=== PATIENT | male | born 1950 ===

== ENCOUNTER 2024-01-27 23:18 | Inpatient (IN) | payer MEDICARE, OTHER, SELFPAY ==
[2024-01-27] VITALS (14 sets, daily range): BP systolic 125–147; BP diastolic 52–80
--- NOTE | 2024-01-27 22:07 | ED.GENMED ---
History of Present Illness
<Arnav Quinones PA-C - Last Filed: 01/27/24 22:42>
General
Chief Complaint: CODE
Source: ambulance crew
Time Seen by Provider: 01/27/24 22:03
History of Present Illness
History of Present Illness:
74-year-old male with no known past medical history presenting to the emergency department with EMS after he had a witnessed cardiac arrest while at a wedding earlier this evening stating that 2 nieces witnessed him syncopize and came to evaluate
him and noticed patient did not have any pulses, initiated CPR. Facility had an AED which was placed and advised shock x 2, following the set shock patient regained pulses. Upon EMS arrival they noted the patient continued with pulses but seemed a
little bit obtunded so were getting ready to intubate but while getting set up patient started to regain consciousness and breathing on his own. EMS noted patient was little bit confused but was answering questions and knew his name but was unsure
as to what happened. Patient noted to them that he was having some chest pain. EMS also reports that earlier in the day family said the patient did have some mild back discomfort which she thought was more musculoskeletal and had taken some Motrin.
Past History
<Arnav Quinones PA-C - Last Filed: 01/27/24 22:42>
Past History
ED Past Surgical History: None
Social History
Tobacco: Non-smoker
Alcohol: Occasional
Drug: None
Personal:
Living: with family
Review of Systems
<Arnav Quinones PA-C - Last Filed: 01/27/24 22:42>
Review of Systems
All Other Systems: ROS reviewed and negative except as documented in HPI and ROS
Phy Exam
<Arnav Quinones PA-C - Last Filed: 01/27/24 22:42>
Physical Exam
Physical Exam:
GENERAL: Alert , in no apparent distress
HEAD: dried blood right cheek
EYE: pupils equal and reactive, 3mm b/l
NECK: Supple
ENT: o/p clr, mmm.
CARDIAC: Regular rate and rhythm .
LUNGS: Clear breath sounds bilaterally, no acute respiratory distress, no wheezes/rales/rhonchi
CHEST WALL: contusion over distal sternum
ABDOMEN: Soft, without focal tenderness, no r/g, no cvat
NEUROLOGICAL: Alert and oriented
SKIN: Warm and dry, skin intact.
MUSCULOSKELETAL: No edema, well perfused.
PSYCH: Normal and appropriate interaction.
Scores
<Arnav Quinones PA-C - Last Filed: 01/27/24 22:42>
Heart Failure Risk
Heart Failure Risk Score: Not Applicable
Heart Score for Chest Pain Patients
STEMI patient?: Not applicable
Withdrawal Assessment of Alcohol
Withdrawal Assessment Completed?: Not applicable
Course
<Arnav Quinones PA-C - Last Filed: 01/27/24 22:42>
Orders/Labs/Results
Orders:
Orders
01/27/24 21:58
Electrocardiogram (*1) Urgent
Reason for Study: Chest Pain
EKG- Treatment ONCE
01/27/24 22:02
Aspirin Chewable [Low Strength Aspirin] 324 mg .ROUTE .STK-MED ONE
01/27/24 22:06
Aspirin Chewable [Low Strength Aspirin] 324 mg PO NOW STA
01/27/24 22:07
Complete Blood Count/With Diff Urgent
Comprehensive Metabolic Panel Urgent
Troponin I Urgent
01/27/24 22:09
CT Head W/o Iv Contrast Urgent
Comment:
Reason For Exam: syncope, head trauma, v-fib arrest
01/27/24 22:24
Heparin 4,000 units IV NOW STA
Nursing to Place Non Medication Order As Directed
Physician Order: PTT 6 hours after initial start of Heparin infusion
01/27/24 22:30
Heparin 40096 Units/250 ml 25,000 units in 250 ml IV PER PROTOCOL
Weight to be used for heparin protocol in kilograms (kg):: 104.5
Protocol:: Cardiac Tx/Acute Coronary
PTT Goal Range to be used:: PTT 73 to 111 seconds
Order type:: Initial
INITIAL Infusion Dose (UNITS/KG/hr) & then follow protocol:: 12 units/kg/hr
Infusion Dose in UNITS/hr & then follow protocol (UNITS/hr):: 1,000
INFUSION RATE in mL/hr & then follow protocol (mL/hr):: 10
PTT less than or equal to 64 seconds:: Increase rate by 200 units/hr (+ 2 mL/hr)
PTT 64.1 to 72.9 seconds:: Increase rate by 100 units/hr (+ 1 mL/hr)
PTT 73 to 111 seconds:: Target Range. No change in rate.
PTT 111.1 to 130.9 seconds:: Decrease rate by 100 units/hr (- 1 mL/hr)
PTT 131 to 199.9 seconds:: HOLD for 1 hr. Then decrease rate by 200 units/hr (- 2 mL/hr)
PTT greater than or equal to 200 seconds:: HOLD for 2 hrs & Notify Provider. Then decrease by 200 units/hr (-
2 mL/hr)
Lab follow-up:: Each change, PTT q6h until 2 consecutive are therapeutic. Then PTT
daily.
01/27/24 22:31
PTT Urgent
Comment: Obtain baseline before beginning heparin infusion if not already collected
Amiodarone [Cordarone] 150 mg Dextrose 5%/Water 100 ml [D5w] 100 ml IV NOW
01/27/24 22:45
Amiodarone [Cordarone] 900 mg DEXTROSE 5% PVC-free BAG [D5W PVC-free BAG] 500 ml IV PER PROTOCOL
Initial Dose in mg/min:: 1
Duration of initial dose (hours):: 6
Subsequent dose in mg/min:: 0.5
Duration of subsequent dose (hours):: 18
Maximum dose in mg/min:: 1
Hold and notify provider if:: Heart rate < 60 BPM or SBP < 90 mmHg or MAP < 60 mmHg
Abnormal Lab Results
01/27/24
22:07
RBC 3.90 L 10^6/uL
(4.70-6.10)
Hgb 12.7 L g/dL
(13.0-18.0)
Hct 36.9 L %
(39.0-52.0)
MCV 94.6 H fL
(80.0-94.0)
MCH 32.6 H pg
(27.0-31.0)
Plt Count 125 L 10^3/uL
(130-400)
MPV 11.3 H fL
(7.4-10.4)
Abs Immat Gran (auto) 0.1 H 10^3/uL
(0-0.05)
Immature Gran % 1.4 H %
(0-0.5)
Carbon Dioxide 20 L mmol/L
(22-30)
BUN 26 H mg/dl
(9-20)
Glucose 189 H mg/dl
(70-99)
AST 168 H U/L
(17-59)
ALT 179 H U/L
(0-50)
01/27/24 22:07
01/27/24 22:07
Vital Signs
Initial and Last Documented VS:
Initial Vital Signs
Temp Pulse Resp BP Pulse Ox
97.5 F 89 18 136/77 91
01/27/24 22:00 01/27/24 22:00 01/27/24 22:00 01/27/24 22:00 01/27/24 22:00
Last Documented Vital Signs
Temp Pulse Resp BP Pulse Ox
97.5 F 88 14 136/77 93
01/27/24 22:00 01/27/24 22:30 01/27/24 22:30 01/27/24 22:01 01/27/24 22:30
<Chris Alvarado, DO - Last Filed: 01/27/24 22:12>
Orders/Labs/Results
Orders:
Orders
01/27/24 21:58
Electrocardiogram (*1) Urgent
Reason for Study: Chest Pain
EKG- Treatment ONCE
01/27/24 22:02
Aspirin Chewable [Low Strength Aspirin] 324 mg .ROUTE .STK-MED ONE
01/27/24 22:06
Aspirin Chewable [Low Strength Aspirin] 324 mg PO NOW STA
01/27/24 22:07
Complete Blood Count/With Diff Urgent
Comprehensive Metabolic Panel Urgent
Troponin I Urgent
01/27/24 22:09
CT Head W/o Iv Contrast Urgent
Comment:
Reason For Exam: syncope, head trauma, v-fib arrest
01/27/24 22:24
Heparin 4,000 units IV NOW STA
Nursing to Place Non Medication Order As Directed
Physician Order: PTT 6 hours after initial start of Heparin infusion
01/27/24 22:30
Heparin 93320 Units/250 ml 25,000 units in 250 ml IV PER PROTOCOL
Weight to be used for heparin protocol in kilograms (kg):: 104.5
Protocol:: Cardiac Tx/Acute Coronary
PTT Goal Range to be used:: PTT 73 to 111 seconds
Order type:: Initial
INITIAL Infusion Dose (UNITS/KG/hr) & then follow protocol:: 12 units/kg/hr
Infusion Dose in UNITS/hr & then follow protocol (UNITS/hr):: 1,000
INFUSION RATE in mL/hr & then follow protocol (mL/hr):: 10
PTT less than or equal to 64 seconds:: Increase rate by 200 units/hr (+ 2 mL/hr)
PTT 64.1 to 72.9 seconds:: Increase rate by 100 units/hr (+ 1 mL/hr)
PTT 73 to 111 seconds:: Target Range. No change in rate.
PTT 111.1 to 130.9 seconds:: Decrease rate by 100 units/hr (- 1 mL/hr)
PTT 131 to 199.9 seconds:: HOLD for 1 hr. Then decrease rate by 200 units/hr (- 2 mL/hr)
PTT greater than or equal to 200 seconds:: HOLD for 2 hrs & Notify Provider. Then decrease by 200 units/hr (-
2 mL/hr)
Lab follow-up:: Each change, PTT q6h until 2 consecutive are therapeutic. Then PTT
daily.
01/27/24 22:31
PTT Urgent
Comment: Obtain baseline before beginning heparin infusion if not already collected
Amiodarone [Cordarone] 150 mg Dextrose 5%/Water 100 ml [D5w] 100 ml IV NOW
01/27/24 22:45
Amiodarone [Cordarone] 900 mg DEXTROSE 5% PVC-free BAG [D5W PVC-free BAG] 500 ml IV PER PROTOCOL
Initial Dose in mg/min:: 1
Duration of initial dose (hours):: 6
Subsequent dose in mg/min:: 0.5
Duration of subsequent dose (hours):: 18
Maximum dose in mg/min:: 1
Hold and notify provider if:: Heart rate < 60 BPM or SBP < 90 mmHg or MAP < 60 mmHg
Abnormal Lab Results
01/27/24
22:07
RBC 3.90 L 10^6/uL
(4.70-6.10)
Hgb 12.7 L g/dL
(13.0-18.0)
Hct 36.9 L %
(39.0-52.0)
MCV 94.6 H fL
(80.0-94.0)
MCH 32.6 H pg
(27.0-31.0)
Plt Count 125 L 10^3/uL
(130-400)
MPV 11.3 H fL
(7.4-10.4)
Abs Immat Gran (auto) 0.1 H 10^3/uL
(0-0.05)
Immature Gran % 1.4 H %
(0-0.5)
Carbon Dioxide 20 L mmol/L
(22-30)
BUN 26 H mg/dl
(9-20)
Glucose 189 H mg/dl
(70-99)
AST 168 H U/L
(17-59)
ALT 179 H U/L
(0-50)
01/27/24 22:07
01/27/24 22:07
Vital Signs
Initial and Last Documented VS:
Initial Vital Signs
Temp Pulse Resp BP Pulse Ox
97.5 F 89 18 136/77 91
01/27/24 22:00 01/27/24 22:00 01/27/24 22:00 01/27/24 22:00 01/27/24 22:00
Last Documented Vital Signs
Temp Pulse Resp BP Pulse Ox
97.5 F 88 14 136/77 93
01/27/24 22:00 01/27/24 22:30 01/27/24 22:30 01/27/24 22:01 01/27/24 22:30
<Arnav Quinones PA-C - Last Filed: 01/27/24 22:42>
MDM/Problems Addressed
Differential Diagnosis Includes:
V-fib arrest, STEMI, NSTEMI, valvular dysfunction, electrolyte abnormality
MDM/Problems Addressed:
74-year-old male presenting emergency department for evaluation following what appears to be V-fib arrest, patient arrives to the ER awake and alert and breathing on his own, hemodynamically stable. Patient complaining of chest pain which I suspect
is more likely related to the CPR that he received as his EKG here shows no ST segment changes. 324 mg of aspirin ordered. To 150 mg of amiodarone bolus, amiodarone infusion ordered. Will consult with cardiology. Hospitalist team to be notified.
<Arnav Quinones PA-C - Last Filed: 01/27/24 22:42>
*Pulse Oximetry
Patient hypoxic: no
*EKG
Heart Rate: 90
Rate: normal
Rhythm: sinus
[place]: normal axis
Ischemia: no ischemia
*[employer] Program Director Interpretation
Rate: normal
Rhythm: sinus
<Chris Alvarado DO - Last Filed: 01/27/24 22:12>
*Critical Care Note
Total Time (30-74mins, 75-104mins- exclusive of procedures): 35 min
comment:
The high probability of a clinically significant, sudden or life threatening deterioration of the cardiovascular system(s) required my full and direct attention, intervention and personal management. The aggregate critical care time was 35 minutes.
This time is in addition to time spent performing reported procedures but includes the following:
[x] Data Review and interpretation
[x] Patient assessment and monitoring of vital signs
[x] Documentation
[x] Medication orders and management
<Arnav Quinones PA-C - Last Filed: 01/27/24 22:42>
Patient Management
Discussion with other providers: Hospitalist and Digital Art Director
Escalation/DeEscalation of care consider admission/obs:
Hospitalist team accepts for continued evaluation and treatment. Cardiology aware. Requesting that we notify interventional as patient is complaining of chest pain. I spoke with interventional cardiology who states that at this time they do not
feel patient needs to be taken to [facility] this evening unless he develops any ST segment changes. Would recommend treating as NSTEMI. Will order heparin following patient CT scan of the head given his head trauma during the syncope.
ED Attending Note
<Arnav Quinones PA-C - Last Filed: 01/27/24 22:42>
-
Portions of this chart may have been created with voice recognition software.� Occasional wrong word or��sound alike� substitutions may have occurred due to the inherent limitations of voice recognition software.
<Chris Alvarado DO - Last Filed: 01/27/24 22:12>
ED Attending Note
Patient seen and examined by attending physician: Yes
I performed the substantive portion of visit, reviewed & personally made and approve the management plan that is documented in note by myself or LUDY.: Yes
ED Attending Note:
I have seen and evaluated the patient with a [id number] encounter. I have spoken to the advance practicer provider and involved in the medical history, the physical exam, medical decision making.
Evaluation and management service: agree unless noted differently below.
Results interpretation: agree unless noted differently below.
Focused HPI: 74-year-old male presenting with a witnessed arrest. Patient was at a wedding and he was dancing. He was complaining of shortness of breath. He did pass out. There was no pulse. Bystanders started CPR and placed the AED. It was a
shockable rhythm. He was shocked twice. EMS arrived and patient woke up. Patient still seems somewhat confused
Physical exam: Appears somewhat confused. Heart regular rate and rhythm. Skin irritation noted at the AED pad site
Medical Decision Making: Given the concern for V-fib arrest, will give aspirin and amiodarone. Will place on amiodarone drip. Will discuss case with interventional cardiology
Discharge Plan
Departure
Patient Disposition: Admit
Date of Disposition: 01/27/24
Time of Disposition: 22:07
Presentation/result/management discussed w/ accepting MD/DO: Hospitalist
Discharge Problem:
Cardiac arrest
Prescriptions:
No Action
atorvastatin 80 mg Tablet
80 mg PO HS
aspirin 81 mg Tablet,Delayed Release (Dr/Ec)
81 mg PO HS
zolpidem 10 mg Tablet
10 mg PO HS
losartan-hydrochlorothiazide 100-12.5 mg Tablet
1 tab PO HS
dexlansoprazole [Dexilant] 60 mg Capsule,Biphase Delayed Releas
60 mg PO HS
doxazosin
1 tab PO HS
Interventions
Interventions:
*Risk Screen - Suicide Last Done: 01/27/24 22:00
*General Assessment Last Done: 01/27/24 22:00
*Neglect/Abuse Screening Last Done: 01/27/24 22:00
ED- Pulmonary Assessment Last Done: 01/27/24 22:36
ED- Cardiac Assessment Last Done: 01/27/24 22:36
Discharge Date and Time
Print Language: GAMBIAN
--- NOTE | 2024-01-27 22:10 | PHANOTE ---
Med Rec Note:
Pt unable to think of medications. No medications shown in Dr Roche, Pt is not in [facility].
--- NOTE | 2024-01-27 22:10 | HPS.HSE ---
Family Physician
-
Family Physician:
Chief Complaint
-
Witnessed V-fib arrest
History of Present Illness
Patient is a 74-year-old male with unknown past medical history. Patient arrived at [facility] ED following witnessed V-fib arrest during wedding. Bystanders at wedding initiated CPR and place AED which delivered 2 shocks. EMS arrived and ROSC
achieved, patient bit down on tubing when EMS attempted to intubate. Patient currently awake, with some confusion, and requiring O2 support. He denies any symptoms over past few days.
Medical History
Past Medical History
Past Medical History: Reports Other
Additional Past Medical History:
Hypertension
Hyperlipidemia
Sleep Apnea
GERD
Past Surgical History: Reports Other
Additional Past Surgical History:
hernia repair
Social History
Tobacco: Non-smoker
Alcohol: None
Drug: None
Personal:
Employment: Retired
Family History
Family History: Unable to Obtain
Allergies / Home Medications
Allergies reflects when Allergies were last updated in [facility].
Home Medications with original date entered in [facility]
Allergy/Medication List:
Allergies
Allergy/AdvReac Type Severity Reaction Status Date / Time
No Known Allergies Allergy Unverified 01/27/24 21:59
Home Medications
aspirin 81 mg tablet,delayed release 81 mg PO HS 01/27/24
atorvastatin 80 mg tablet 80 mg PO HS 01/27/24
dexlansoprazole 60 mg capsule,biphase delayed release (Dexilant) 60 mg PO HS 01/27/24
doxazosin 1 tab PO HS 01/27/24
losartan 100 mg-hydrochlorothiazide 12.5 mg tablet 1 tab PO HS 01/27/24
zolpidem 10 mg tablet 10 mg PO HS 01/27/24
Review of Systems
-
History Source: Patient
Constitutional: Reports No Symptoms
EENT: Reports No Symptoms
Respiratory: Reports No Symptoms
Cardiac: Reports Chest Pain (likely s/p chest compressions) and Syncope (witnessed v-fib arrest)
Abdomen/GI: Reports No Symptoms
: Reports No Symptoms
Musculoskeletal: Reports No Symptoms
Skin: Reports No Symptoms
Neurological: Reports No Symptoms
Endocrine: Reports No Symptoms
Hematologic/Lymphatic: Reports No Symptoms
Psych: Reports No Symptoms
Physical Exam
Physical Exam
General: Well Developed, Well Nourished, No Apparent Distress and Morbidly Obese
HEENT: NormoCephalic, Moist mucous membranes, Atraumatic, [place] Conjunctivae, Nose Appears Normal and Ears Appear Normal
Respiratory: Clear and Non Labored Respirations; No Wheezes, Rales, Rhonchi or Crackles
Cardiac: S1/S2 and Regular Rhythm; No Murmur, Rub or Gallop
Breast: Deferred by me
GI: Soft, Non Tender, Non Distended and Normal Bowel Sounds; No Organomegaly
Rectal: Deferred by Provider
Genito-urinary: Deferred by me
Musculoskeletal: No Clubbing, No Cyanosis and No Edema
Skin: Warm, Dry, IV/Catheter Site and Other (abrasions noted to forehead and right side of face ); No Rash
Neuro: Awake, Alert and Nonfocal/grossly intact
Psych: Calm and Confused
Laboratory Results
-
01/27/24 22:07
01/27/24 22:07
Laboratory Results
APTT 25.1 Sec (23.4-35.0) 01/27/24 22:31
Total Bilirubin 0.7 mg/dl (0.2-1.3) 01/27/24 22:07
AST 168 U/L (17-59) H 01/27/24 22:07
ALT 179 U/L (0-50) H 01/27/24 22:07
Alkaline Phosphatase 63 U/L (38-126) 01/27/24 22:07
Troponin I 0.028 ng/ml 01/27/24 22:07
Data Reviewed
-
Diagnostic Radiology: Report Reviewed by me (CXR: No focal airspace disease. No pneumothorax.)
CT Scan: Report Reviewed by me (Head: No acute intracranial abnormality noted.)
Lab Data: Labs Reviewed by me
Impression/Plan
-
IMPRESSION/PLAN:
#V-fib arrest, syncope with head trauma
- Witnessed V-fib arrest at wedding, bystanders started CPR, AED at location and placed, 2 shocks given
- EMS arrived and ROSC achieved, attempted to intubate and patient bit down on tube
- Consult cardiology
- CBC w/diff, BMP, Mag, BNP, lipids, PT/INR, trend troponin
- Echocardiogram
- IV Protonix while on heparin
- Heparin gtt
- Amiodarone gtt
- NPO
- Head CT
- Chest X-ray
- Pain control, antiemetics (Tigan if needed r/t long QT) PRN
- IVF bolus
- Levophed to maintain MAP >60 if needed
#Hypertension
- hold losartan-HCTZ
#Hyperlipidemia
- continue atorvastatin
#Sleep Apnea
- utilizes CPap at home
#GERD
- Protonix IV
Full Code
DVT Px: Heparin gtt
Labs
-
Labs:
WBC 6.4 10^3/uL (4.8-10.8) 01/27/24 22:07
RBC 3.90 10^6/uL (4.70-6.10) L 01/27/24 22:07
Hgb 12.7 g/dL (13.0-18.0) L 01/27/24 22:07
Hct 36.9 % (39.0-52.0) L 01/27/24 22:07
Plt Count 125 10^3/uL (130-400) L 01/27/24 22:07
Sodium 142 mmol/L (135-145) 01/27/24 22:07
Potassium 3.7 mmol/L (3.5-5.1) 01/27/24 22:07
Chloride 106 mmol/L (98-107) 01/27/24 22:07
Carbon Dioxide 20 mmol/L (22-30) L 01/27/24 22:07
BUN 26 mg/dl (9-20) H 01/27/24 22:07
Creatinine 1.2 mg/dL (0.7-1.3) 01/27/24 22:07
eGFR > 60.00 01/27/24 22:07
Glucose 189 mg/dl (70-99) H 01/27/24 22:07
Calcium 8.6 mg/dl (8.4-10.2) 01/27/24 22:07
Albumin 4.3 g/dl (3.5-5.0) 01/27/24 22:07
Labs
-
Labs:
WBC 6.4 10^3/uL (4.8-10.8) 01/27/24 22:07
RBC 3.90 10^6/uL (4.70-6.10) L 01/27/24 22:07
Hgb 12.7 g/dL (13.0-18.0) L 01/27/24 22:07
Hct 36.9 % (39.0-52.0) L 01/27/24 22:07
Plt Count 125 10^3/uL (130-400) L 01/27/24 22:07
Sodium 142 mmol/L (135-145) 01/27/24 22:07
Potassium 3.7 mmol/L (3.5-5.1) 01/27/24 22:07
Chloride 106 mmol/L (98-107) 01/27/24 22:07
Carbon Dioxide 20 mmol/L (22-30) L 01/27/24 22:07
BUN 26 mg/dl (9-20) H 11/22/24 22:07
Creatinine 1.2 mg/dL (0.7-1.3) 01/27/24 22:07
eGFR > 60.00 01/27/24 22:07
Glucose 189 mg/dl (70-99) H 01/27/24 22:07
Calcium 8.6 mg/dl (8.4-10.2) 01/27/24 22:07
Albumin 4.3 g/dl (3.5-5.0) 01/27/24 22:07
[2024-01-27 22:17] LABS: % Basophils 0.3 % (0-2); % Eosinophils 1.3 % (0-6); % Immature Granulocytes 1.4 % (0-0.5); % Lymphocytes 24.7 % (20.5-51.1); % Monocytes 7.2 % (1.7-9.3); % Neutrophils 65.1 % (42.2-75.2); Absolute Eosinophils 0.1 10^3/uL (0-0.7); Absolute Immature Granulocytes 0.1 10^3/uL (0-0.05); Absolute Lymphocytes 1.6 10^3/uL (1.2-3.4); Absolute Monocytes 0.5 10^3/uL (0.1-0.6); Absolute Neutrophils 4.2 10^3/uL (1.4-6.5); Hematocrit 36.9 % (39.0-52.0); Hemoglobin 12.7 g/dL (13.0-18.0); Mean Corp Hgb Conc. 34.4 g/dL (33.0-37.0); Mean Corpuscular Hgb 32.6 pg (27.0-31.0); Mean Corpuscular Volume 94.6 fL (80.0-94.0); Mean Platelet Volume 11.3 fL (7.4-10.4); Nucleated Red Blood Cells % 0 % (-); Platelet Count 125 10^3/uL (130-400); Red Cell Dist. Width 12.1 % (11.5-14.5); White Blood Cell Count 6.4 10^3/uL (4.8-10.8)
[2024-01-27 22:28] LABS: ALT (SGPT) 179 U/L (0-50); AST (SGOT) 168 U/L (17-59); Albumin 4.3 g/dl (3.5-5.0); Alkaline Phosphatase 63 U/L (38-126); Blood Urea Nitrogen 26 mg/dl (9-20); Calcium 8.6 mg/dl (8.4-10.2); Carbon Dioxide 20 mmol/L (22-30); Chloride 106 mmol/L (98-107); Glucose 189 mg/dl (70-99); Potassium 3.7 mmol/L (3.5-5.1); Sodium 142 mmol/L (135-145); Total Bilirubin 0.7 mg/dl (0.2-1.3); Total Protein 6.3 g/dl (6.3-8.2); eGFR > 60.00
--- NOTE | 2024-01-27 22:30 | W.PN.UPDATE ---
Update Note
Progress Note Update
Patient seen in conjunction with PAULINA. I agree with findings on history and physical as well as assessment and plan unless stated otherwise.
Patient is status post cardiac arrest during the wedding ceremony. 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
CAD or heart failure who presents to the emergency department following a cardiac arrest as stated above. Patient denies any symptoms prior to the arrest. He was not having any recent episodes of chest pain dyspnea on exertion lower extremity
edema palpitations lightheadedness dizziness nausea vomiting or diaphoresis. He had no recent or infectious symptoms. Weakness is the patient suddenly collapsed and CPR was immediately started. Rhythm was V-fib and patient had to defibrillations.
He had ROSC at that time. There was an attempt to intubate the patient but he was awake enough and alert enough to not require intubation.
When I saw the patient in the ED he was awake alert moving all 4 extremities. He was disoriented and mildly confused. He had no focal deficits. He was able to provide his past medical history to some degree. He apparently was originally from
[place] visiting [facility] for a wedding. There is a reported that he has a executor of his estate/POA who reported that the patient has a history of thrombocytosis. All labs are pending at this time. Cardiology notified. He did complain of
substernal chest pain while in the ED. IR notified as well.
ECG NSR, no acute ischemia. QTc 480.
Plans
VFIB ARREST with ROSC after 2 defibrillation. Alert and oriented immediately afterwards. Not a candidate for cooling. Hemodynamically stable with mild oxygen requirement
- admit to ICU
- CT head, Chest Xray,
- trop, bnp, bmp, cbc, mag, cardiovascular panel, pt/inr
- trend trop
- asa 324 x 1, heparin gtt if head ct negative
- ppi iv while on heparin
- amiodarone gtt for now
- keep K, Mag > 4,2
- continue daily aspirin and statin
- echo
- pain control and antiemetics
- ischemic w/u and EP per cardiology
- npo for now except meds
- cardiology consulted
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
- CT head is negative
- monitoring and consider MRI/neuro consult ini am
Full code
[2024-01-27 22:40] LABS: Troponin I 0.028 ng/ml
[2024-01-27] MEDS: CORDARONE 103 MG IV (22:46)
[2024-01-27] MEDS: LOW STRENGTH ASPIRIN 324 MG PO (22:47)
[2024-01-27 22:48] LABS: APTT 25.1 Sec (23.4-35.0)
[2024-01-27] MEDS: CORDARONE 518 MG IV (23:20)
[2024-01-28] VITALS (73 sets, daily range): BP systolic 93–168; BP diastolic 47–90; BMI 32.3
[2024-01-28] MEDS: HEPARIN 25000 UNITS/250 ML IV ×2 (00:29→20:25)
[2024-01-28] MEDS: HEPARIN 4000 UNITS IV (00:30)
[2024-01-28] MEDS: MORPHINE SULFATE 2 MG IV ×6 (01:37→22:49)
[2024-01-28 01:39] LABS: INR 1.05
[2024-01-28 01:58] LABS: Magnesium 1.8 mg/dl (1.6-2.3)
--- NOTE | 2024-01-28 02:00 | PTCARENOTE ---
Patient arrived via stretcher from ER without difficulty. Patient A+A+Ox3. No neurological deficits noted. Patient able to move all extremities. Morphine 2mg IV given for chest pain - Positive relief provided. New peripheral IV placed by VAT
Team RN - #[id number] Left arm - Basilic. IV Amiodarone infusing at 1 mg/min (33.3 ml/hr). IV Heparin infusing at 1,000 units/hr (10 ml/hr). Patient with no c/o SOB. 2L O2 via NC. SpO2 97%. Sinus Rhythm with rare PVC. Heart rate 60s. Abdomen soft,
round. Normoactive bowel sounds. No c/o nausea. No vomiting. No diaphoresis. No urge to void at this time. Family arrived for brief visit - Back in AM. Patient with no c/o back or flank pain. Assessment as documented.
[2024-01-28 02:07] LABS: NT-proBNP 170 pg/ml
--- NOTE | 2024-01-28 04:15 | PTCARENOTE ---
Patient resting in bed. Patient A+A+Ox3. No neurological deficits noted. New orders obtained for pain management from [facility]. Morphine 2mg IV administered for 10/10 pain - Right and Left Chest region - Moderate relief provided.
Assessment/Interventions as documented.
--- NOTE | 2024-01-28 06:00 | PTCARENOTE ---
Patient A+A+Ox3. No neurological deficits. AM lab work collected and sent. Patient continues on IV Amiodarone gtt and IV Heparin gtt. Patient resting in bed. Assessment/Interventions as documented.
[2024-01-28 06:34] LABS: % Basophils 0.2 % (0-2); % Immature Granulocytes 0.4 % (0-0.5); % Lymphocytes 3.5 % (20.5-51.1); % Monocytes 7.6 % (1.7-9.3); % Neutrophils 88.3 % (42.2-75.2); Absolute Lymphocytes 0.4 10^3/uL (1.2-3.4); Absolute Monocytes 0.9 10^3/uL (0.1-0.6); Absolute Neutrophils 9.9 10^3/uL (1.4-6.5); Hematocrit 37.3 % (39.0-52.0); Hemoglobin 12.9 g/dL (13.0-18.0); Mean Corp Hgb Conc. 34.6 g/dL (33.0-37.0); Mean Corpuscular Hgb 32.4 pg (27.0-31.0); Mean Corpuscular Volume 93.7 fL (80.0-94.0); Mean Platelet Volume 11.1 fL (7.4-10.4); Nucleated Red Blood Cells % 0 % (-); PT 14.5 Sec (11.4-14.6); Platelet Count 130 10^3/uL (130-400); Red Blood Cell Count 3.98 10^6/uL (4.70-6.10); Red Cell Dist. Width 12.2 % (11.5-14.5); White Blood Cell Count 11.2 10^3/uL (4.8-10.8)
[2024-01-28 06:35] LABS: APTT 40.6 Sec (23.4-35.0)
[2024-01-28 06:52] LABS: ALT (SGPT) 161 U/L (0-50); AST (SGOT) 130 U/L (17-59); Albumin 4.3 g/dl (3.5-5.0); Alkaline Phosphatase 58 U/L (38-126); Blood Urea Nitrogen 31 mg/dl (9-20); Calcium 8.7 mg/dl (8.4-10.2); Carbon Dioxide 22 mmol/L (22-30); Chloride 107 mmol/L (98-107); Estimated Creatinine Clearance 73 ml/min; Glucose 196 mg/dl (70-99); HDL Cholesterol 42 mg/dl; LDL Cholesterol, Calculated 53 mg/dl; Magnesium 1.7 mg/dl (1.6-2.3); Phosphorus 3.6 mg/dl (2.5-4.5); Potassium 4.4 mmol/L (3.5-5.1); Sodium 144 mmol/L (135-145); Total Bilirubin 1.2 mg/dl (0.2-1.3); Total Cholesterol 111 mg/dl (50-199); Total Protein 6.4 g/dl (6.3-8.2); Triglyceride 80 mg/dl (10-149); Very Low Density Lipoprotein 16 mg/dl (0-30); eGFR > 60.00
--- NOTE | 2024-01-28 07:09 | CON.INTV ---
Consultation
Consultation Request
Date/Time Consultation Requested: 01/28/2024-7 AM
Date/Time Consultation Performed: 01/28/2024-7:30 AM
Requesting Provider: Hospitalist
Performing Provider: Dr. Dyer
Reason for Consultation: Postcardiac arrest/critical care management
Medical History
-
Chief Complaint: Cardiac arrest
History of Present Illness:
74-year-old male who lives in [place] with a history of hypertension, hyperlipidemia, GERD and obstructive sleep apnea who was at a wedding and and had a witnessed cardiac arrest with almost immediate bystander CPR/AED shock x 2 with subsequent
resumption of spontaneous circulation and regaining mental status-b[employer] supervisor consulted for postcardiac arrest/critical care management 01/28/2024. Patient's major complaint this morning is chest pain especially with deep inspiration related to
probable rib fractures. He denies any shortness of breath at rest. He denies any other chest pain. Did not complain of any abdominal pain, nausea, weakness, or lower extremity swelling.
Past Medical History
Past Medical History: None (Hypertension. Hyperlipidemia. GERD. TERESA on CPAP. Possible CVA in the past. Obesity. Hernia repair.)
Social History
Tobacco: Non-smoker
Alcohol: None
Drug: None
Personal:
Living: With Family (Lives with mother in her 90s and takes care of her)
Employment: Retired
Occupational Exposures: No known asbestos exposure
Environmental Exposures: No known tuberculosis exposure
Allergies / Home Medications
Allergies
Allergy/AdvReac Type Severity Reaction Status Date / Time
No Known Allergies Allergy Unverified 01/27/24 21:59
Home Medications
�Medication �Instructions �Recorded �Confirmed �Last Taken �Type
aspirin 81 mg tablet,delayed 81 mg PO HS 01/27/24 01/28/24 01/26/24 22:00 History
release 81 mg
atorvastatin 80 mg tablet 80 mg PO HS 01/27/24 01/28/24 01/26/24 22:00 History
80 mg
dexlansoprazole 60 mg 60 mg PO HS 01/27/24 01/28/24 01/26/24 22:00 History
capsule,biphase delayed release 60 mg
(Dexilant)
doxazosin 1 tab PO HS 01/27/24 01/28/24 01/26/24 22:00 History
5 mg
losartan 100 1 tab PO HS 01/27/24 01/28/24 01/26/24 22:00 History
mg-hydrochlorothiazide 12.5 mg 100-12.5mg
tablet
zolpidem 10 mg tablet 10 mg PO HS 01/27/24 01/28/24 01/26/24 22:00 History
10 mg
Review of Systems
-
Unable to Obtain full review of systems at this time due to: Other (Per HPI)
Vitals / Labs / Diagnostic Testing
Vital Signs
Temp Pulse Resp BP Pulse Ox
98.0 F 65 18 136/72 97
01/28/24 04:00 01/28/24 06:21 01/28/24 06:21 01/28/24 06:21 01/28/24 06:21
Lab Data
01/28/24 06:10
01/28/24 06:10
Laboratory Results
01/27/24 01/27/24 01/28/24
22:31 22:43 06:10
PT 14.0 Cancelled 14.5
INR 1.05 Cancelled 1.10
APTT 25.1 40.6 H
Diagnostic Testing:
Physical Exam
-
Exam:
Well-nourished and well-developed in no apparent distress
HEENT-atraumatic, normocephalic
Neck-supple, no JVD, no bruit
Heart-regular rate and rhythm-no murmurs, rubs or gallops
Chest-clear to auscultation, no wheezes, crackles
Back-no tenderness
Abdomen-soft, nontender, nondistended, no hepatosplenomegaly
Extremities-no cyanosis, clubbing, edema and good peripheral pulses
Integument-intact, no rashes, lesions or ecchymosis
Neurology-alert and oriented, nonfocal motor and sensory exam
Assessment
-
74-year-old male who lives in [place] with a history of hypertension, hyperlipidemia, GERD and obstructive sleep apnea who was at a wedding and and had a witnessed cardiac arrest with almost immediate bystander CPR/AED shock x 2 with subsequent
resumption of spontaneous circulation and regaining mental status-[employer] supervisor consulted for postcardiac arrest/critical care management 01/28/2024.
Out of hospital witnessed cardiac arrest-suspect VT/V-fib arrest with shockable rhythm
Chest pain
Elevated troponin
Hypertension
Hyperlipidemia
Right carotid atherosclerosis noted on chest x-ray
Leukocytosis-WBC 11.2
Mild coojba-gibjbtodad-vfotsbyyvr 12.9
Hyperglycemia-blood sugar [id number]
Conditions present prior to admission:
Hypertension.
Hyperlipidemia.
GERD.
TERESA on CPAP.
Possible CVA in the past.
Obesity.
Hernia repair.
Plan
Critically ill postarrest-did not require intubation
Supplemental oxygen as needed
Incentive spirometry
Follow radiographically
CPAP at night as needed-has home CPAP
Trend troponin
Cardiology evaluation ongoing
Check echocardiogram
Coronary ischemia workup
Amiodarone drip continues
Heparin drip continues
Nitroglycerin drip continues
Evaluated for targeted temperature management-not a candidate-mental status normal after resumption of spontaneous circulation
Analgesia per primary service
DVT prophylaxis
Nutrition
Early mobilization
Outpatient follow-up with sleep specialist as well as cardiology
Critical care statement: A total of 55 minutes of critical care time was provided for this patient today. This includes management of unstable vital signs, evaluation of the patient at bedside, reviewing the patient's pertinent medical records
including radiographs, postcardiac arrest management, microbiology, laboratory evaluations, and discussion with primary team, consultants, pharmacy, nutrition, physical therapy, case management, charge nurse, critical care nursing, and respiratory
therapy.
Diagnostic data:
Chest x-ray 01/27/2024-no focal airspace disease, no pneumothorax
CT head 01/27/2024-no acute intracranial abnormalities
Data Reviewed
-
EKG: Report reviewed by me
Radiology: Image personally visualized and interpreted and Report reviewed by me
CT Scan: Report reviewed by me
Medical Tests (Nuc Med, Echo etc): Report reviewed by me
Labs: Labs reviewed by me
Old Records: Reviewed
Critical Care Time (in minutes): 55
[2024-01-28 07:26] LABS: Hepatitis C Antibody Negative (Negative)
--- NOTE | 2024-01-28 07:45 | W.PN.HOSP.TC ---
Today's Communication/Plan
-
Continue Aspirin, heparin drip, nitro drip, amiodarone drip and Toprol XL
Assessment / Plan
Assessment / Plan
Physical Exam
General: Not in acute distress
HEENT: Normocephalic
Respiratory: Clear to Auscultation Bilaterally
Cardiac: S1/S2 and Regular Rhythm
GI: Soft, Non Tender, Non Distended and Normal Bowel Sounds
Musculoskeletal: No Cyanosis and No Edema
Skin: Warm. Dry.
Neuro: Awake, Alert, Oriented x3
Psych: Calm
Assessment/Plan
74 y/o male status post cardiac arrest during the wedding ceremony. 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
presented to the emergency department following a cardiac arrest at a wedding during which AED which was applied and advised shock x 2 for V-Fib arrest. Patient denies any symptoms prior to the arrest. He was not having any recent episodes of
chest pain dyspnea on exertion lower extremity edema palpitations lightheadedness dizziness nausea vomiting or diaphoresis. He had no recent or infectious symptoms. Weakness is the patient suddenly collapsed and CPR was immediately started.
Rhythm was V-fib and patient had two defibrillations. He had ROSC at that time. There was an attempt to intubate the patient but he was awake enough and alert enough to not require intubation.
At the time of admission in the emergency department, patient was awake and alert moving all 4 extremities. He was disoriented and mildly confused. He had no focal deficits. He was able to provide his past medical history to some degree. He
apparently was originally from [place] [facility] a [facility]. There is a reported that he has a executor of his estate/POA who reported that the patient has a history of thrombocytosis. All labs are pending at this time. Cardiology
notified. He did complain of substernal chest pain while in the ED. IR notified as well.
ECG NSR, no acute ischemia. QTc 480.
Suspected VT/VF based on advised AED shock
- Continue to monitor in CVICU
- CT head with no acute abnormality
- CXR with with 'Mild atherosclerotic calcifications of the right carotid bifurcation,' as per radiologist's report, otherwise no pneumothorax or focal airspace disease
- bmp, mag are okay
- LDL 53
- INR okay
- Troponins so far peaked at 3.030
- ProBNP was 170
- asa 324 x 1, heparin gtt if head ct negative
- ppi iv while on heparin
- Continue ASA, heparin drip, nitro drip, amiodarone drip, Toprol XL
- keep K, Mag > 4,2
- Echo results noted -- LVEF is 50%, mildly enlarged right ventricular size, but normal right ventricular systolic function
- Discussed with combatant diver qualified and vocational education teacher today -- hold off on PE evaluation for now. Since it was a shockable rhythm, suspect ischemia. Other possible would be primary rhythm issue if cath is unremarkable.
- ischemic w/u and EP per cardiology -- eventual left heart cath
- Cardiology consulted, appreciate their evaluation and recommendations
Leukocytosis
Normocytic Anemia
Thrombocytopenia - RESOLVED
- Monitor CBC
Confusion - IMPROVING
- CT head is negative
- If mental status worsens or does not continue to improve, then will consult neurology
History of Thrombocytosis?
Right carotid atherosclerosis noted on chest x-ray
Hypertension - hold Losartan-HCTZ
Hyperlipidemia - continue Atorvastatin
GERD - Protonix IV
TERESA on CPAP - patient uses CPAP at home
Possible CVA in the past.
Obesity.
Hernia repair.
Full Code
DVT Prophylaxis: Heparin gtt
Patient with Vtach/Vfib arrest needing monitoring in the CVICU with Heparin Drip, Nitro Drip and Amiodarone Drip, is a high-risk encounter.
Anticipated Discharge: > 48 hours
Subjective/Interval History
-
Date of Service: January 28, 2024
Patient was seen and examined. He was having intermittent chest wall pain, but otherwise denied any other significant symptoms or complaints.
Objective Data
-
Labs:
Laboratory Results
01/27/24 01/27/24 01/27/24
22:07 22:31 22:43
WBC 6.4
Hgb 12.7 L
Hct 36.9 L
Plt Count 125 L
PT 14.0 Cancelled
INR 1.05 Cancelled
APTT 25.1
Sodium 142
Potassium 3.7
Chloride 106
Carbon Dioxide 20 L
BUN 26 H
Creatinine 1.2
Glucose 189 H
Calcium 8.6
Total Bilirubin 0.7
AST 168 H
ALT 179 H
Alkaline Phosphatase 63
01/28/24 01/28/24 01/28/24
06:00 06:10 13:30
WBC 11.2 H
Hgb 12.9 L
Hct 37.3 L
Plt Count 130
PT 14.5
INR 1.10
APTT Pending 40.6 H Pending
Sodium 144
Potassium 4.4
Chloride 107
Carbon Dioxide 22
BUN 31 H
Creatinine 1.0
Glucose 196 H
Calcium 8.7
Total Bilirubin 1.2
AST 130 H
ALT 161 H
Alkaline Phosphatase 58
Vital Signs:
Vital Signs
Temp Pulse Resp BP Pulse Ox
98.0 F 68 20 140/67 95
01/28/24 04:00 01/28/24 07:30 01/28/24 06:30 01/28/24 07:00 01/28/24 07:30
I&O
01/27/24 01/28/24 01/29/24
06:59 06:59 06:59
Intake Total 199.9 / 199.9
Output Total 200 / 200
Balance 199.9 / -0.1 -200 / -200
--- NOTE | 2024-01-28 08:53 | CON.CAR ---
Addendum entered and electronically signed by José Luis Humphreys MD 01/28/24 10:17:
74 yo male with PMH of elevated coronary calcium score, HTN, hyperlipidemia is admitted following out of hospital cardiac arrest. He was dancing at a wedding. Then sat down and passed out. Family members could not find pulse, started CPR, and
then applied AED which advised shock. EMS arrived, and he woke up as intubation was attempted. Currently his chest wall is painful to palpation. He does not recall any symptoms prior to the event. Exam with RRR, no murmurs, no edema. EKG: NSR,
mildly elevated QTc. TnI 0.028-->3.0.
Out of hospital cardiac arrest. Suspected VT/VF based on advised AED shock. Check echo today. Cath likely Tuesday. Based on cath findings, to decide on ICD evaluation.
Continue current regimen. ASA, heparin gtt, nitro gtt, amio gtt, Toprol XL.
Original Note:
Consultation
Consultation Request
Date/Time Consultation Requested: 01/28/2024 0700
Date/Time Consultation Performed: 01/28/24 0730
Requesting Provider: Dr. Miranda
Performing Provider: Dr. Humphreys
Reason for Consultation: out of hospital arrest
Medical History
-
Chief Complaint: syncope, out of hospital arrest
History of Present Illness:
74 y/o pt with history of HTN,hyperlipidemia, TERESA on CPAP, possible CVA who lives in [place] who was in the area for a wedding. He was dancing and then sat at a table and had syncope and fell out of his chair. He was noted to not have a pulse
and CPR was started by witnesses. The facility had an AED which was applied and advised shock x 2 . He regained consciousness when EMS arrived. Did not required intubation. Initial EKG's without acute ST changes. He was started on IV amiodarone and
IV heparin. This am he notes pain in his chest and ribs. He can feel this with pushing and a deep breath. He has a second discomfort during which he feels a tight fist in the center of his chest which causes him to hold his breath, he becomes red in
the face and mildly diaphoretic with it. This can last 1-2 min then improves.
-
He denies prior CAD, NV. He states he had a calcium score of 14 in the past.
Past Medical History
Past Medical History: HTN, Hypercholesterolemia and Other (TERESA/CPAP, ? low platelets)
Past Surgical History: None
Social History
Tobacco: Non-Smoker
Alcohol: Occasional
Drug: None
Living: Other (Takes care of his mother who is in her 90's)
Employment: Retired
Family History
Family History: Reviewed & Not Pertinent
Allergies / Home Medications
Allergy/AdvReac Type Severity Reaction Status Date / Time
No Known Allergies Allergy Unverified 01/27/24 21:59
�Medication �Instructions �Recorded �Confirmed �Type
aspirin 81 mg tablet,delayed 81 mg PO HS 01/27/24 01/28/24 History
release
atorvastatin 80 mg tablet 80 mg PO HS 01/27/24 01/28/24 History
dexlansoprazole 60 mg 60 mg PO HS 01/27/24 01/28/24 History
capsule,biphase delayed release
(Dexilant)
doxazosin 1 tab PO HS 01/27/24 01/28/24 History
losartan 100 1 tab PO HS 01/27/24 01/28/24 History
mg-hydrochlorothiazide 12.5 mg
tablet
zolpidem 10 mg tablet 10 mg PO HS 01/27/24 01/28/24 History
Review of Systems
-
History Source: Patient
Constitutional: No Symptoms
EENT: No Symptoms
Respiratory: No Symptoms
Cardiac: Chest Pain (fist in center of chest) and Diaphoresis
Abdomen/GI: No Symptoms
: No Symptoms
Musculoskeletal: Other (chets pain, rib pain)
Skin: No Symptoms
Physical Exam
Vital Signs
Temp Pulse Resp BP Pulse Ox
98.0 F 68 20 140/67 95
01/28/24 04:00 01/28/24 07:30 01/28/24 06:30 01/28/24 07:00 01/28/24 07:30
Lab Results
01/28/24 06:10
01/28/24 06:10
Troponin I 3.030 ng/ml H* 01/28/24 06:10
Cft-K-Grenlgiauoo Pept Cancelled 01/27/24 22:43
Physical Exam
General: Well Developed, Well Nourished and No Apparent Distress
HEENT: Normocephalic
Respiratory: Clear
Cardiac: S1/S2 and Regular Rhythm
Breast: N/A
GI: Soft, Non Tender and Non Distended
Musculoskeletal: No Edema
Skin: Warm and Dry
Neuro: AO x 3
Psych: Calm
Impression / Plan
-
Suspected VT/VF arrest with shockable rhythm on AED:
-witnessed at a wedding, CPR, AED with 2 shocks given. We dont not have strips at this time.
-did not require intubation when EMS arrive and was awake but slightly confused.
-troponin 3 and con't to trend
-IV amiodarone. Tele stable
-EKG's without acute changes.
-echo planned today
-pt requires intense monitoring with IV heparin, IV nitro and IV amiodarone
-when BP stable will add bblocker
CP:
- pt with episodes of CP this am
-EKG's have remained stable
-IV nitro initiated
-trend troponin
-check echo this am
-Eventual LHC
HTN:
-prior OP meds, on hold given IV nitro
hyperlipidemia:
-chronic statin
R carotid atherosclerosis:
-noted on CXR this admit , described as mild
-con't statin, asa
Data Reviewed
-
EKG: Tracing Personally Visualized and interpreted (NSR 68 bpm)
Radiology: Report Reviewed by me (01/27/24 no acute findings)
Labs: Labs Reviewed by me, Discussed with Physician and Discussed with Patient
[2024-01-28] MEDS: PROTONIX IV 40 MG IV ×2 (09:18→20:24)
[2024-01-28] MEDS: NSS (PRESERVATIVE FREE) 10 ML IV ×2 (09:19→20:24)
[2024-01-28 11:07] LABS: Glycohemoglobin (HgbA1c) 5.9 % (4.0-5.6)
[2024-01-28] MEDS: TOPROL XL 25 MG PO (11:17)
--- NOTE | 2024-01-28 12:00 | SUR.OPER ---
Some relief of CP with nitro titrated up to 30mcg: still requiring morphine intermittently for rib pain. Hospitalist and cardiology aware of same: new orders. Amio gtt will be renewed for another 24hrs. Troponin trending daown.
[2024-01-28] MEDS: MORPHINE SULFATE 4 MG IV ×2 (13:56→20:24)
[2024-01-28 15:32] LABS: APTT 78.7 Sec (23.4-35.0)
--- NOTE | 2024-01-28 17:00 | PTCARENOTE ---
[id number] 12 lead shows no acute changes and troponins trending down.
--- NOTE | 2024-01-28 19:27 | PTCARENOTE ---
Bedside walking rounds rounds report received: patient is having chest pain with minimal exertion: cardiology aware: will do serial EKG for evolution and troponins and add IV nitro. Heparin gtt verified at 1200 units /hr. NSR with pvc/pac's. Very
talkative and anxious. See flowrecord for remaining assessments.
--- NOTE | 2024-01-28 21:00 | PTCARENOTE ---
Patient received resting in bed. Pain management with Morphine sulfate 2-4 mg IV. Patient with increasing c/o left sided rib pain. Patient states, 'I think my ribs are broken.' No c/o sternal pain, pressure or discomfort. No c/o radiating pain.
Patient continues on IV Amiodarone gtt, IV Heparin gtt and IV Nitro gtt. 2L O2. SpO2 96%. Sinus Rhythm with occasional PAC and PVC. Heart rate 60's. Blood pressure 117/77 (90). Voiding without difficulty. No c/o back or flank pain.
Abrasions to right side of forehead/cheek/face - Open to air. Assessment as documented.
[2024-01-28] MEDS: ASPIR LOW (ENTERIC COATED) 81 MG PO (22:49)
[2024-01-28] MEDS: MAGNESIUM OXIDE 500 MG PO (22:49)
[2024-01-28] MEDS: LIPITOR 80 MG PO (22:49)
[2024-01-28] MEDS: CORDARONE 518 MG IV (23:20)
[2024-01-29] VITALS (58 sets, daily range): BP systolic 116–198; BP diastolic 62–101; BMI 32.0
--- NOTE | 2024-01-29 | PTCARENOTE ---
VAT Team RN placed new #22P left forearm for renewal of IV Amiodarone gtt. New Amiodarone gtt with new tubing/filter started at 0.5 mg/min (16.7 ml/hr) due to heart rate 60's per PA. Old peripheral IV site #22P used for IV Amiodarone gtt removed
without difficulty per protocol. Most recent PTT result 53.0 - In accordance with IV Heparin protocol for Cardiac Tx/Acute Coronary, rate increased by 200 units/hr. IV Heparin now infusing at 1,400 units/hr (14 ml/hr). PTT 6hrs after rate change.
Assessment/Interventions as documented.
[2024-01-29] MEDS: MORPHINE SULFATE 4 MG IV ×2 (00:45→20:08)
[2024-01-29] MEDS: MORPHINE SULFATE 2 MG IV ×4 (03:00→16:42)
[2024-01-29] MEDS: DILAUDID 0.25 MG IV (05:10)
[2024-01-29 05:53] LABS: % Basophils 0.2 % (0-2); % Eosinophils 0.1 % (0-6); % Immature Granulocytes 0.5 % (0-0.5); % Lymphocytes 14.3 % (20.5-51.1); % Monocytes 10.7 % (1.7-9.3); % Neutrophils 74.2 % (42.2-75.2); Absolute Lymphocytes 1.2 10^3/uL (1.2-3.4); Absolute Monocytes 0.9 10^3/uL (0.1-0.6); Absolute Neutrophils 6.4 10^3/uL (1.4-6.5); Hematocrit 33.6 % (39.0-52.0); Hemoglobin 11.5 g/dL (13.0-18.0); Mean Corp Hgb Conc. 34.2 g/dL (33.0-37.0); Mean Corpuscular Hgb 32.9 pg (27.0-31.0); Mean Platelet Volume 11.4 fL (7.4-10.4); Nucleated Red Blood Cells % 0 % (-); Platelet Count 121 10^3/uL (130-400); Red Cell Dist. Width 12.5 % (11.5-14.5); White Blood Cell Count 8.6 10^3/uL (4.8-10.8)
--- NOTE | 2024-01-29 06:15 | PTCARENOTE ---
Patient administered IV Dilaudid 0.25mg x1 - 12/14 left lateral chest - Moderate relief provided. Patient with coughing episode. Small amount of brown, dark red secretions expelled. Patient given CHG bath and linens changed. PTT result 55.0 - IV
Heparin rate increased by 200 units - Now infusing at 1,600 units/hr (16 ml/hr). PTT at 12pm. Assessment/Interventions as documented.
[2024-01-29 06:27] LABS: ALT (SGPT) 109 U/L (0-50); AST (SGOT) 59 U/L (17-59); Albumin 3.6 g/dl (3.5-5.0); Alkaline Phosphatase 50 U/L (38-126); Blood Urea Nitrogen 39 mg/dl (9-20); Calcium 8.1 mg/dl (8.4-10.2); Carbon Dioxide 26 mmol/L (22-30); Chloride 106 mmol/L (98-107); Estimated Creatinine Clearance 73 ml/min; Glucose 143 mg/dl (70-99); Magnesium 2.1 mg/dl (1.6-2.3); Sodium 141 mmol/L (135-145); Total Bilirubin 0.9 mg/dl (0.2-1.3); Total Protein 5.6 g/dl (6.3-8.2); eGFR > 60.00
--- NOTE | 2024-01-29 07:00 | PTCARENOTE ---
Bedside walking rounds report. Patient is refusing to get oob to chair due to intense pain ribs. NSR. Oxygen increased to 3L to maintain pulse ox sats greater than 90%: explained importance of oob for lung perfusion and pulmonary toileting.
Continues to refuse. See flowrecord for remaining assessments.
[2024-01-29] MEDS: PROTONIX IV 40 MG IV ×2 (07:41→20:09)
[2024-01-29] MEDS: MAGNESIUM OXIDE 500 MG PO ×2 (07:41→20:09)
[2024-01-29] MEDS: TOPROL XL 25 MG PO (07:41)
[2024-01-29] MEDS: NSS (PRESERVATIVE FREE) 10 ML IV ×2 (07:42→20:09)
--- NOTE | 2024-01-29 07:44 | W.PN.INTV ---
Today's Communication / Plan
Recommendations
Analgesia
Nitro and heparin drip continue
Monitor for arrhythmias
Cardiac catheterization tomorrow
Assessment
-
74-year-old male who lives in [place] with a history of hypertension, hyperlipidemia, GERD and obstructive sleep apnea who was at a wedding and and had a witnessed cardiac arrest with almost immediate bystander CPR/AED shock x 2 with subsequent
resumption of spontaneous circulation and regaining mental status-instructional specialist consulted for postcardiac arrest/critical care management 01/28/2024.
Out of hospital witnessed cardiac arrest-suspect VT/V-fib arrest with shockable rhythm
Chest pain
Suspected rib fractures from CPR
Elevated troponin
Hypertension
Hyperlipidemia
Right carotid atherosclerosis noted on chest x-ray
Leukocytosis-WBC 11.2
Mild olmmvy-rqnighdtjd-pahyawqipv 12.9
Hyperglycemia-blood sugar [id number]
Conditions present prior to admission:
Hypertension.
Hyperlipidemia.
GERD.
TERESA on CPAP.
Possible CVA in the past.
Obesity.
Hernia repair.
Plan
Continues to be critically ill on a heparin and nitroglycerin drip
Supplemental oxygen as needed
Incentive spirometry
Follow radiographically
CPAP at night as needed-has home CPAP
Trend troponin
Cardiology evaluation ongoing-reviewed with Dr. Humphreys
Echocardiogram 01/28/2024-EF 50%, mildly enlarged right ventricle, normal right ventricular systolic function, no significant valvular disease
Coronary ischemia workup-tentative cardiac catheterization 01/30/2024
Amiodarone drip continues
Heparin drip continues
Nitroglycerin drip continues
Evaluated for targeted temperature management-not a candidate-mental status normal after resumption of spontaneous circulation
Venous thromboembolic disease as cause for cardiopulmonary arrest-very low suspicion-suspect arrhythmia
Would not pursue CT chest with PE protocol at this time-he will be receiving dye at cardiac catheterization
If cardiac catheterization is unrevealing for ischemia induced arrhythmia he will likely need ICD and at that point prior to heparin drip discontinuation would rule out PE to be complete
Analgesia per primary service-significant rib and sternal pain
Consider eventual rib films or CT chest with ongoing severe anterior chest pain related to suspected rib/sternal fractures
DVT prophylaxis-on heparin drip
Nutrition
Early mobilization when allowed by cardiology
Outpatient follow-up with sleep specialist as well as cardiology
Critical care statement: A total of 55 minutes of critical care time was provided for this patient today. This includes management of unstable vital signs, evaluation of the patient at bedside, reviewing the patient's pertinent medical records
including radiographs, postcardiac arrest management, microbiology, laboratory evaluations, and discussion with primary team, consultants, pharmacy, nutrition, physical therapy, case management, charge nurse, critical care nursing, and respiratory
therapy.
Diagnostic data:
Chest x-ray 01/27/2024-no focal airspace disease, no pneumothorax
CT head 01/27/2024-no acute intracranial abnormalities
Subjective Dataa
Subjective Data
Date of Service:
Date of Service: January 29, 2024
Chief Complaint: [employer] [place] Follow Up and Pulmonary Follow Up
Subjective:
Still complaining of significant rib and chest pains from compressions, no shortness of breath, no arrhythmias, no abdominal pain
Review of Systems
General: Other (Per HPI)
Objective Data
Data Reviewed
Vital Signs / I&O / Oxygen:
Vital Signs
Temp Pulse Resp BP Pulse Ox
99.5 F 74 20 144/75 90
01/29/24 07:32 01/29/24 07:32 01/29/24 07:32 01/29/24 07:32 01/29/24 07:32
Intake and Output
01/28/24 01/29/24 01/30/24
06:59 06:59 06:59
Intake Total 199.9 / 199.9 1355.1 / 1355.1
Output Total 1625 / 1625
Balance 199.9 / -0.1 -269.9 / -269.9
SaO2 90
Nasal Cannula flow liters per 3
minute
Physical Exam
General: Respiratory Distress (n) and Comfortable
HEENT: Normocephalic, Anicteric and Moist Mucous Membranes
Cardiovascular: Regular Rhythm and Murmur (n)
Respiratory: Wheeze (n), Crackles (n), Rhonchi (n), Non-Labored Respirations, Accessory Resp Muscle Use and Stridor (n)
GI: Soft, Non Distended and Non Tender
Neurology: Awake, Alert and No Motor Deficits
Skin: Warm, Good Color, Cyanosis (n), Jaundice (n) and Rash (n)
Labs/Micro/Reports
Lab Data
01/29/24 05:26
01/29/24 05:26
Laboratory Results
01/28/24 01/28/24 01/28/24
06:00 14:57 23:03
APTT Cancelled 78.7 H 53.0 H
01/29/24
05:26
APTT 55.0 H
--- NOTE | 2024-01-29 09:35 | W.PN.CD ---
Today's Communication / Plan
-
cath in AM
Impression / Plan
-
Suspected VT/VF arrest with shockable rhythm on AED:
-witnessed at a wedding, CPR, AED with 2 shocks given. We dont not have strips at this time.
-did not require intubation when EMS arrive and was awake but slightly confused.
-peak trop 3
-cont ASA 81mg daily, Toprol XL 25mg daily, IV heparin, IV nitro and IV amiodarone
-requires intensive monitoring of labs, tele
-echo shows EF 50%, TDS; will follow up with contrast study
-plan for cath in AM
-we discussed topic of ICD, plan to be determined based on cath results
-mild elevated QTc noted on admission
HTN:
-outpatient losartan-HCTZ and cardura on hold; maintained on drips above
elevated calcium score, hyperlipidemia:
-chronic atorvastatin 80mg daily
-LDL 53
R carotid atherosclerosis:
-noted on CXR this admit , described as mild
-con't statin, asa
CCT 35 minutes
Physical Exam
Vital Signs/Labs
Vital Signs
Temp Pulse Resp BP Pulse Ox
99.5 F 74 20 144/75 90
01/29/24 07:32 01/29/24 07:32 01/29/24 07:32 01/29/24 07:32 01/29/24 07:32
01/28/24 01/29/24 01/30/24
06:59 06:59 06:59
Actual Weight 99.1 kg 98.2 kg
01/29/24 05:26
01/29/24 05:26
PT 14.5 Sec (11.4-14.6) 01/28/24 06:10
INR 1.10 01/28/24 06:10
APTT 55.0 Sec (23.4-35.0) H 01/29/24 05:26
Magnesium 2.1 mg/dl (1.6-2.3) 01/29/24 05:26
Triglycerides 80 mg/dl (10-149) 01/28/24 06:10
LDL Cholesterol, Calc 53 mg/dl 01/28/24 06:10
VLDL Cholesterol, Calc 16 mg/dl (0-30) 01/28/24 06:10
HDL Cholesterol 42 mg/dl 01/28/24 06:10
01/27/24 01/27/24
22: 22:43
Ygm-B-Kulemnstymx Pept 170 Cancelled
LAB Results
01/27/24 01/28/24 01/28/24
22:07 06:10 10:58
Troponin I 0.028 3.030 H* 2.260 H* D
01/28/24
17:42
Troponin I 1.540 H* D
Physical Exam
Constitutional: No acute distress
EENT: Moist mucous membranes
Cardiovascular: Rhythm & rate is regular, Pedal edema is absent, JVD pressure is normal and Systolic murmur absent
Respiratory: Respiratory effort normal and Lungs clear to auscul.
Neuro/Psych: AO x 3
Data Reviewed
-
Date of Service: January 29, 2024
EKG: Other (Tele: NSR, no arrhythmia)
Echo: Tracing Personally Visualized and interpreted
Labs: Labs Reviewed by me
--- NOTE | 2024-01-29 12:00 | PTCARENOTE ---
No acute changes. Remains in bed. NSR. Plan cardiac cath tomorrow per Dr. Humphreys with Dr. Zepeda.
[2024-01-29 14:03] LABS: APTT > 200.0 Sec (23.4-35.0)
--- NOTE | 2024-01-29 15:27 | W.PN.HOSP.TC ---
Today's Communication/Plan
-
Cardiac cath tomorrow
Assessment / Plan
Assessment / Plan
Physical Exam
General: Not in acute distress
HEENT: Normocephalic
Respiratory: Clear to Auscultation Bilaterally
Cardiac: S1/S2 and Regular Rhythm
GI: Soft, Non Tender, Non Distended and Normal Bowel Sounds
Musculoskeletal: No Cyanosis and No Edema
Skin: Warm. Dry.
Neuro: Awake, Alert, Oriented x3
Psych: Calm
Assessment/Plan
74 y/o male status post cardiac arrest during the wedding ceremony. 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
presented to the emergency department following a cardiac arrest at a wedding during which AED which was applied and advised shock x 2 for V-Fib arrest. Patient denies any symptoms prior to the arrest. He was not having any recent episodes of
chest pain dyspnea on exertion lower extremity edema palpitations lightheadedness dizziness nausea vomiting or diaphoresis. He had no recent or infectious symptoms. Weakness is the patient suddenly collapsed and CPR was immediately started.
Rhythm was V-fib and patient had two defibrillations. He had ROSC at that time. There was an attempt to intubate the patient but he was awake enough and alert enough to not require intubation.
At the time of admission in the emergency department, patient was awake and alert moving all 4 extremities. He was disoriented and mildly confused. He had no focal deficits. He was able to provide his past medical history to some degree. He
apparently was originally from [facility] for a wedding. There is a reported that he has a executor of his estate/POA who reported that the patient has a history of thrombocytosis. All labs are pending at this time. Cardiology
notified. He did complain of substernal chest pain while in the ED. IR notified as well.
ECG NSR, no acute ischemia. QTc 480.
Suspected VT/VF based on advised AED shock
- Continue to monitor in CVICU
- CT head with no acute abnormality
- CXR with with 'Mild atherosclerotic calcifications of the right carotid bifurcation,' as per radiologist's report, otherwise no pneumothorax or focal airspace disease
- bmp, mag are okay
- LDL 53
- INR okay
- Troponins so far peaked at 3.030
- ProBNP was 170
- IV PPI while on heparin
- Continue ASA, heparin drip, nitro drip, amiodarone drip, Toprol XL
- keep K, Mag > 4,2
- Echo results noted -- LVEF is 50%, mildly enlarged right ventricular size, but normal right ventricular systolic function
- Discussed with advertising manager -- hold off on PE evaluation for now. Since it was a shockable rhythm, suspect ischemia. Other possible would be primary rhythm issue if cath is unremarkable.
- ischemic w/u and EP per cardiology -- cardiac cath planned for 01/30/24
- Cardiology consulted, appreciate their evaluation and recommendations
Leukocytosis - RESOLVED
Normocytic Anemia
Thrombocytopenia
- Monitor CBC
Confusion - IMPROVING
- CT head is negative
- If mental status worsens or does not continue to improve, then should consult neurology
History of Thrombocytosis?
Right carotid atherosclerosis noted on chest x-ray
Hypertension - hold Losartan-HCTZ
Hyperlipidemia - continue Atorvastatin
GERD - Protonix IV
TERESA on CPAP - patient uses CPAP at home
Possible CVA in the past.
Obesity.
Hernia repair.
Full Code
DVT Prophylaxis: Heparin gtt
Patient with Vtach/Vfib arrest needing monitoring in the CVICU with Heparin Drip, Nitro Drip and Amiodarone Drip, is a high-risk encounter.
Anticipated Discharge: > 48 hours
Subjective/Interval History
-
Date of Service: January 29, 2024
Patient was seen and examined. He reported significant musculoskeletal pain in his trunk, worse with moving, likely from chest compressions he received.
Objective Data
-
Labs:
Laboratory Results
01/29/24 01/29/24
05:26 13:24
WBC 8.6
Hgb 11.5 L
Hct 33.6 L
Plt Count 121 L
APTT 55.0 H > 200.0 H*
Sodium 141
Potassium 4.0
Chloride 106
Carbon Dioxide 26
BUN 39 H
Creatinine 1.0
Glucose 143 H
Calcium 8.1 L
Total Bilirubin 0.9
AST 59
ALT 109 H
Alkaline Phosphatase 50
Vital Signs:
Vital Signs
Temp Pulse Resp BP Pulse Ox
99.5 F 74 20 144/75 90
01/29/24 07:32 01/29/24 07:32 01/29/24 07:32 01/29/24 07:32 01/29/24 07:32
I&O
01/28/24 01/29/24 01/30/24
06:59 06:59 06:59
Intake Total 199.9 / 199.9 1355.1 / 1355.1
Output Total 1625 / 1625 200 / 200
Balance 199.9 / -0.1 -269.9 / -269.9 -200 / -200
--- NOTE | 2024-01-29 16:15 | PTCARENOTE ---
Heparin gtt resumed after 2 hours off: 1400units/hr. Dr. Humphreys aware of last ptt greater than 200. NSR 3l nasal canula
[2024-01-29] MEDS: HEPARIN 25000 UNITS/250 ML IV (17:29)
--- NOTE | 2024-01-29 20:00 | PTCARENOTE ---
Assumed care of the patient at 1900. Patient in bed, AOx3, c/o '12'/10 pain in sternal/chest area. Morphine administered, see MAY. HRR, trace edema to lower extremities, + pulses. On 3LNC, tachypneic and shallow breathing. Appetite poor, tolerated
PO medication, abdomen obese. Had an episode of incontinence - typically continent with urinal - patient cleansed with CHG cloth bath, linen changed, repositioned for comfort. Patient unable to tolerate repositioning d/t pain in his chest. R face
abrasions scabbed. PIVx2 in L forearm, R hand. On Amio, heparin, and nitro. See worklist for nursing interventions and titration data. Heparin and nitro adjusted per protocol. Call patel within reach, therapeutic communication utilized to establish
rapport, patient encouraged to communicate needs PRN. Assessment of needs ongoing.
[2024-01-29] MEDS: LIPITOR 80 MG PO (22:11)
[2024-01-29] MEDS: ASPIR LOW (ENTERIC COATED) 81 MG PO (22:11)
[2024-01-29 22:46] LABS: APTT 50.7 Sec (23.4-35.0)
[2024-01-29] MEDS: DILAUDID 0.5 MG IV (23:49)
[2024-01-30] VITALS (67 sets, daily range): BP systolic 127–233; BP diastolic 57–101; PULSE 67; O2SAT 94; BMI 32.2
--- NOTE | 2024-01-30 00:45 | PTCARENOTE ---
Patient with some blood in his R sclera, CVPA made aware ordered eye drops for irritation. Morphine PRN yielded no pain relief for patient. After nonpharmacological measures utilized, discussed with CVPA about adding additional breakthrough
medication. Dilaudid added PRN and administered.
Patient c/o chest congestion and unable to expectorate d/t pain. Brisa provided for patient to self-suction, expectorated a large amount of thick, blood-tinged sputum, CPVA notified. Patient reported feeling much better after clearing secretions.
Nitro titrated per protocol.
[2024-01-30] MEDS: CORDARONE 518 MG IV (03:48)
[2024-01-30] MEDS: DILAUDID 0.5 MG IV ×3 (04:29→12:56)
[2024-01-30 05:09] LABS: % Basophils 0.2 % (0-2); % Eosinophils 0.1 % (0-6); % Immature Granulocytes 0.7 % (0-0.5); % Lymphocytes 11.9 % (20.5-51.1); % Neutrophils 74.1 % (42.2-75.2); Absolute Immature Granulocytes 0.1 10^3/uL (0-0.05); Absolute Lymphocytes 1.3 10^3/uL (1.2-3.4); Absolute Monocytes 1.4 10^3/uL (0.1-0.6); Absolute Neutrophils 7.8 10^3/uL (1.4-6.5); Hematocrit 34.6 % (39.0-52.0); Hemoglobin 11.7 g/dL (13.0-18.0); Mean Corp Hgb Conc. 33.8 g/dL (33.0-37.0); Mean Corpuscular Hgb 32.6 pg (27.0-31.0); Mean Corpuscular Volume 96.4 fL (80.0-94.0); Mean Platelet Volume 11.1 fL (7.4-10.4); Nucleated Red Blood Cells % 0 % (-); Platelet Count 138 10^3/uL (130-400); Red Blood Cell Count 3.59 10^6/uL (4.70-6.10); Red Cell Dist. Width 12.3 % (11.5-14.5); White Blood Cell Count 10.5 10^3/uL (4.8-10.8)
[2024-01-30 05:24] LABS: APTT 67.5 Sec (23.4-35.0)
[2024-01-30 05:41] LABS: ALT (SGPT) 81 U/L (0-50); AST (SGOT) 39 U/L (17-59); Albumin 3.9 g/dl (3.5-5.0); Alkaline Phosphatase 52 U/L (38-126); Blood Urea Nitrogen 39 mg/dl (9-20); Calcium 8.7 mg/dl (8.4-10.2); Carbon Dioxide 29 mmol/L (22-30); Chloride 104 mmol/L (98-107); Estimated Creatinine Clearance 66 ml/min; Glucose 148 mg/dl (70-99); Magnesium 2.6 mg/dl (1.6-2.3); Potassium 4.8 mmol/L (3.5-5.1); Sodium 143 mmol/L (135-145); Total Bilirubin 1.4 mg/dl (0.2-1.3); Total Protein 6.2 g/dl (6.3-8.2); eGFR > 60.00
[2024-01-30] MEDS: NITROGLYCERIN PREMIX 250 IV (06:38)
--- NOTE | 2024-01-30 07:00 | SUR.PHASEI ---
Bedside walking rounds report received. Patient seen on rounds resting in bed and having excruciating sternal and left rib pain: MD aware/hospitalist aware on rounds : pain regimen adjusted. 4L nasal canula. Amiodarone gtt at protocol via #[id number] IV
right forearm: No redness or edema and positive brisk blood return. Heparin and nitro infusing via left wrist IV at prescribed settings. NSR with pac's/pvc's. See flow record for remaining assessments
--- NOTE | 2024-01-30 07:09 | W.PN.INTV ---
Today's Communication / Plan
Recommendations
[facility] reviewed, mild findings
Continue medical management for CAD
Off heparin, remains on amiodarone, weaned off pressors
Pain control post arrest
Encouraged OOB/PT/IS
Transfer to [facility], we will sign off upon transfer
Assessment
-
74-year-old male who lives in [place] with a history of hypertension, hyperlipidemia, GERD and obstructive sleep apnea who was at a wedding and and had a witnessed cardiac arrest with almost immediate bystander CPR/AED shock x 2 with subsequent
resumption of spontaneous circulation and regaining mental status-ash handler consulted for postcardiac arrest/critical care management 01/28/2024.
Out of hospital witnessed cardiac arrest-suspect VT/V-fib arrest with shockable rhythm
Chest pain
Suspected rib fractures from CPR
Elevated troponin
Hypertension
Hyperlipidemia
Right carotid atherosclerosis noted on chest x-ray
Leukocytosis-WBC 11.2
Mild [id number]-lvphaejblg 12.9
Hyperglycemia-blood sugar [id number]
Conditions present prior to admission:
Hypertension.
Hyperlipidemia.
GERD.
TERESA on CPAP.
Possible CVA in the past.
Obesity.
Hernia repair.
Plan
Doing well, off pressors, remains on amio gtt
Supplemental oxygen as needed
Incentive spirometry
Follow radiographically
CPAP at night as needed-has home CPAP
Trend troponin
Cardiology evaluation ongoing-reviewed with Dr. Humphreys
Echocardiogram 01/28/2024-EF 50%, mildly enlarged right ventricle, normal right ventricular systolic function, no significant valvular disease
Coronary ischemia workup-[facility] showing stable mild dz
Amiodarone drip continues
Off pressors
Evaluated for targeted temperature management-not a candidate-mental status normal after resumption of spontaneous circulation
Venous thromboembolic disease as cause for cardiopulmonary arrest-very low suspicion-suspect arrhythmia
Would not pursue CT chest with PE protocol at this time-he will be receiving dye at cardiac catheterization
Heparin discontinued
Analgesia per primary service-significant rib and sternal pain
Consider eventual rib films or CT chest with ongoing severe anterior chest pain related to suspected rib/sternal fractures
DVT prophylaxis-on heparin drip
Nutrition
Early mobilization when allowed by cardiology
Outpatient follow-up with sleep specialist as well as cardiology
Diagnostic data:
Chest x-ray 01/27/2024-no focal airspace disease, no pneumothorax
CT head 01/27/2024-no acute intracranial abnormalities
LHC 01/30/24- 1. Mildly elevated LV filling pressure and no aortic stenosis.
2. Non-obstructive CAD in a right dominant system. No culprit lesion to explain patient's cardiac arrest.
3. IVUS of LM was negative (7.0 mm2).
-----
Critical Care time 35 mins -- The patient is admitted for acute critical illness for the treatment of vital organ failure and/or prevention of further life-threatening conditions. Total care includes time spent in review of history, physical exam,
medications, hemodynamic/ventilator parameters, laboratory data, imaging and discussion with house staff, pharmacy, respiratory therapy, actuary manager, and nursing.
Subjective Dataa
Subjective Data
Date of Service:
Date of Service: January 30, 2024
Chief Complaint: [employer] Follow Up and Pulmonary Follow Up
Subjective:
No acute events ON, remains stable on RA
s/p C
Has chest pain, but otherwise doing well
Off pressors
Objective Data
Data Reviewed
Vital Signs / I&O / Oxygen:
Vital Signs
Temp Pulse Resp BP Pulse Ox
97.8 F 63 25 139/77 95
01/30/24 04:00 01/30/24 04:00 01/30/24 05:00 01/30/24 04:00 01/30/24 04:00
Intake and Output
01/29/24 01/30/24 01/31/24
06:59 06:59 06:59
Intake Total 1355.1 / 1355.1 483.8 / 483.8
Output Total 1625 / 1625 720 / 720
Balance -269.9 / -269.9 -236.2 / -236.2
SaO2 95
Nasal Cannula flow liters per 4
minute
Physical Exam
General: Respiratory Distress (n), Comfortable, Pain and Good Appetite
HEENT: Normocephalic, Anicteric and Moist Mucous Membranes
Cardiovascular: S1-S2, Regular Rhythm, Murmur (n) and Peripheral Edema
Respiratory: Clear, Wheeze (n), Crackles (n), Rhonchi (n), Non-Labored Respirations, Accessory Resp Muscle Use and Stridor (n)
GI: Soft, Non Distended and Non Tender
Neurology: Awake, Alert, Oriented and No Motor Deficits
Skin: Warm, Good Color, Cyanosis (n), Jaundice (n) and Rash (n)
Labs/Micro/Reports
Lab Data
01/30/24 04:44
01/30/24 04:44
Laboratory Results
01/29/24 01/29/24 01/30/24
13:24 22:15 04:44
APTT > 200.0 H* 50.7 H 67.5 H
[2024-01-30] MEDS: PROTONIX IV 40 MG IV ×2 (07:23→20:21)
[2024-01-30] MEDS: NSS (PRESERVATIVE FREE) 10 ML IV ×2 (07:25→20:21)
[2024-01-30] MEDS: MAGNESIUM OXIDE 500 MG PO ×2 (07:26→20:21)
[2024-01-30] MEDS: TOPROL XL 25 MG PO (07:26)
--- NOTE | 2024-01-30 08:40 | W.PN.HOSP.TC ---
Today's Communication/Plan
-
for [facility] today
increasing pain meds
Assessment / Plan
Assessment / Plan
HPI:
74 y/o male status post cardiac arrest during the wedding ceremony. 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
presented to the emergency department following a cardiac arrest at a wedding during which AED which was applied and advised shock x 2 for V-Fib arrest. Patient denies any symptoms prior to the arrest. He was not having any recent episodes of
chest pain dyspnea on exertion lower extremity edema palpitations lightheadedness dizziness nausea vomiting or diaphoresis. He had no recent or infectious symptoms. Weakness is the patient suddenly collapsed and CPR was immediately started.
Rhythm was V-fib and patient had two defibrillations. He had ROSC at that time. There was an attempt to intubate the patient but he was awake enough and alert enough to not require intubation.
At the time of admission in the emergency department, patient was awake and alert moving all 4 extremities. He was disoriented and mildly confused. He had no focal deficits. He was able to provide his past medical history to some degree. He
apparently was originally from [facility] for a wedding. There is a reported that he has a executor of his estate/POA who reported that the patient has a history of thrombocytosis. All labs are pending at this time. Cardiology
notified. He did complain of substernal chest pain while in the ED. IR notified as well.
ECG NSR, no acute ischemia. QTc 480.
TTE
Low normal left ventricular systolic function. Left ventricular ejection fraction is 50%.
Wall motion analysis is limited by the image quality. Mildly enlarged right ventricular size. Normal right ventricular systolic function.
No significant valve disease.

1. Cardiac arrest
Presumed VT/VF as AED delivered x2 shocks
- CT head with no acute abnormality
- Admission EKG showing NSR with PACs, QTc WNL
- TTE report as above
- CXR with with 'Mild atherosclerotic calcifications of the right carotid bifurcation,' as per radiologist's report, otherwise no pneumothorax or focal airspace disease
- Troponin so far peaked at 3.030
- Being maintained on heparin/nitro/amiodarone drip
- Cardiology planning to take patient to [facility] house lab[facility] today
2. Mild TME
- post cardiac arrest and mild anoxic brain injury related
- CT head did not show any major edema changes, repeat imaging with MRI brain if have persistent issue
- No secondary infection to confound the encephalopathy
- Requiring significant pain medication due to MSK pain from rib and will need to hold if sedated
3. Rib pain
- From chest compression
- Dedicated rib xr will be required if not improved in next few days, no reported rib fracture on initial PA CXR.
- Management remains supportive, increased pain medication to oral oxy/IV dilaudid for breakthrough
- NSAID would be beneficial but contraindicated with simultaneous need of heparin drip
4. Leukocytosis w/o fever -resolved
- continue monitor
5. Normocytic anemia
- monitor with heparin drip.
- no concern of bleeding
6. Pre-diabetic
- A1c of 5.9
- will add SGLT2 inhibitor/metformin
History of Thrombocytosis?
Right carotid atherosclerosis noted on chest x-ray
Essential HTN - HCTZ/losartan on hold.
Hyperlipidemia - continue Atorvastatin
GERD - Protonix IV
TERESA on CPAP - patient uses CPAP at home
Possible CVA in the past.
Obesity.
Hernia repair.
Full Code
DVT Prophylaxis: Heparin gtt
Critical care time : 39 mins
Anticipated Discharge: > 48 hours
Subjective/Interval History
-
Date of Service: January 30, 2024
complaining of significant chest pain
coherent and not confused, somnolent
afebrile overnight
on nitro drip, BP stable
Objective Data
-
Labs:
Laboratory Results
01/29/24 01/30/24 01/30/24
22:15 04:44 12:00
WBC 10.5
Hgb 11.7 L
Hct 34.6 L
Plt Count 138
APTT 50.7 H 67.5 H Pending
Sodium 143
Potassium 4.8
Chloride 104
Carbon Dioxide 29
BUN 39 H
Creatinine 1.1
Glucose 148 H
Calcium 8.7
Total Bilirubin 1.4 H
AST 39
ALT 81 H
Alkaline Phosphatase 52
Vital Signs:
Vital Signs
Temp Pulse Resp BP Pulse Ox
97.7 F 76 28 172/88 91
01/30/24 07:00 01/30/24 07:00 01/30/24 07:00 01/30/24 07:00 01/30/24 07:00
I&O
01/29/24 01/30/24 01/31/24
06:59 06:59 06:59
Intake Total 1355.1 / 1355.1 483.8 / 576.5 92.7 / 92.7
Output Total 1625 / 1625 720 / 720 0 / 0
Balance -269.9 / -269.9 -236.2 / -143.5 92.7 / 92.7
Review of Systems
-
Respiratory: Reports No Symptoms
Cardiac: Reports No Symptoms
Abdomen/GI: Reports No Symptoms
Physical Exam
-
General: No Apparent Distress and Comfortable
HEENT: Negative Oxygen
Respiratory: Clear to Auscultation
Cardiac: Regular Rhythm and S1/S2; Negative Murmur or Rub
GI: Soft, Nontender, Nondistended and Normal Bowel Sounds
Musculoskeletal: No Edema
Neuro: Awake, Alert, Oriented, No Motor Deficits and Nonfocal/Grossly Intact
Psych: Calm
[2024-01-30] MEDS: ROXICODONE 10 MG PO ×3 (09:23→17:50)
[2024-01-30] MEDS: HEPARIN 25000 UNITS/250 ML IV (10:13)
--- NOTE | 2024-01-30 10:45 | PTCARENOTE ---
Report given to CCL: heparin gtt off. Patient to have cath to eval cause of v fibb arrest Tuesday night and has strong family hx and personal hx of elevated calcium score.
--- NOTE | 2024-01-30 11:00 | PTCARENOTE ---
Patient to CCL via bed accompanied by CCL staff x 2. Meds and IV's verified at bedside.
[2024-01-30 11:59] LABS: ACT-LR - POC 239 Seconds (116-155)
--- NOTE | 2024-01-30 12:21 | W.PN.CD ---
Today's Communication / Plan
-
no CAD to explain arrest
still very hypertensive on nitro gtt, wean to oral meds as able
stop heparin
cont. amio
ICD tomorrow (NPO@MN)
Impression / Plan
-
Suspected VT/VF arrest with shockable rhythm on AED:
-witnessed at a wedding, CPR, AED with 2 shocks given. We dont not have strips at this time.
-did not require intubation when EMS arrive and was awake but slightly confused.
-[facility] today with moderate, IVUS-negative distal left main disease; no coronary blockade to explain arrest
-peak trop 3
-mildly prolonged qTC
-cont ASA 81mg daily, Toprol XL 25mg daily, continue IV amio, STOP IV heparin, wean IV nitro with oral BP meds
-requires intensive monitoring of labs, tele
-echo shows EF 50%, TDS; will follow up with contrast study
-plan for secondary prevention ICD tomorrow [facility] Dr. Suarez
HTN:
-outpatient losartan-HCTZ and cardia on hold; can restart as wean nitro gtt
elevated calcium score, hyperlipidemia:
-chronic atorvastatin 80mg daily
-LDL 53
R carotid atherosclerosis:
-noted on CXR this admit , described as mild
-con't statin, asa
CCT 35 minutes
Physical Exam
Vital Signs/Labs
Vital Signs
Temp Pulse Resp BP Pulse Ox
36.5 C 80 29 190/89 96
01/30/24 07:00 01/30/24 11:10 01/30/24 11:10 01/30/24 11:00 01/30/24 09:15
01/29/24 01/30/24 01/31/24
06:59 06:59 06:59
Actual Weight 98.2 kg 98.7 kg
01/30/24 04:44
01/30/24 04:44
PT 14.5 Sec (11.4-14.6) 01/28/24 06:10
INR 1.10 01/28/24 06:10
APTT 67.5 Sec (23.4-35.0) H 01/30/24 04:44
Magnesium 2.6 mg/dl (1.6-2.3) H 01/30/24 04:44
Triglycerides 80 mg/dl (10-149) 01/28/24 06:10
LDL Cholesterol, Calc 53 mg/dl 01/28/24 06:10
VLDL Cholesterol, Calc 16 mg/dl (0-30) 01/28/24 06:10
HDL Cholesterol 42 mg/dl 01/28/24 06:10
01/27/24 01/27/24
22:07 22:43
Tvp-B-Odbwmkdnuse Pept 170 Cancelled
LAB Results
01/27/24 01/28/24 01/28/24
22:07 06:10 10:58
Troponin I 0.028 3.030 H* 2.260 H* D
01/28/24
17:42
Troponin I 1.540 H* D
Physical Exam
Constitutional: No acute distress and Comfortable
Cardiovascular: Rhythm & rate is regular, Pedal edema is absent, JVD pressure is normal, Systolic murmur absent and Diastolic murmur absent
Respiratory: Respiratory effort normal, Lungs clear to auscul., Wheeze Absent, Crackles Absent and Rhonchi Absent
Neuro/Psych: AO x 3
Data Reviewed
-
Date of Service: January 30, 2024
Medical Decision Making: Reviewed Test Results
EKG: Tracing Personally Visualized and interpreted and Report Reviewed by me
Echo: Tracing Personally Visualized and interpreted and Report Reviewed by me
X-Ray/CT/US/MRI/NUC/PET: Image Personally Visualized and interpreted and Report Reviewed by me
Labs: Labs Reviewed by me
Critical Care Time (in minutes): 35
Total Time Spent with Patient (in minutes): 15
--- NOTE | 2024-01-30 12:21 | ITS.CL.CATH ---
Marine Service Manager - Catheterization
Cardiac Catheterization
Procedure Report:
CARDIAC CATHETERIZATION REPORT
Date of Procedure: 01/30/24
Referring: Dr. José Luis Humphreys MD, PhD
INDICATION: cardiac arrest
PROCEDURE:
1. Left heart catheterization
2. Coronary angiography
3. IVUS of LAD and LM
ACCESS:
6 Hebrew right radial artery
CATHETERS:
1. 6 Hebrew JR4
2. 6 Hebrew JL3.5
3. 6 Hebrew XB3.5 guide
HEMODYNAMIC DATA
LV 149/14 (EDP 22) mmHg
AO 148/78 (mean 101) mmHg
CORONARY ANGIOGRAPHY
LM: large vessel with mild proximal disease and moderate distal disease that was further interrogated by IVUS.
LAD: large vessel giving rise to a small D1, moderate caliber D2, and wrapping around the apex. There is a 40% stenosis in the mid-vessel just after D2 that was further interrogated by IVUS and otherwise mild disease.
LCx: large vessel giving rise to a large high-rising OM1, large branching OM2, and small OM3. There is mild diffuse disease.
RCA: moderate caliber vessel giving rise to a moderate caliber RPDA and single small RPL branch. There is a 30% stenosis in the mid-vessel and otherwise mild non-obstructive disease.
IVUS of mid-LAD and LM
Additional heparin was given to achieve ACT>250. The left main was engaged with a XB3.5 guide catheter and a Runthrough wire placed in the distal LAD. IVUS was performed from the mid-LAD back to the LM. The MLA of the 40% mid-LAD stenosis was 4.3 mm
with mild calcification. The MLA of the distal LM stenosis was 7.0 mm with non-concentric calcification.
RADIATION
Radiation (mGy): 651.95
DAP (cm2.Gy): 51.21
Fluoroscopy time (minutes): 5.1
CONCLUSIONS
1. Mildly elevated LV filling pressure and no aortic stenosis.
2. Non-obstructive CAD in a right dominant system. No culprit lesion to explain patient's cardiac arrest.
3. IVUS of LM was negative (7.0 mm2).
RECOMMENDATIONS:
1. Expectant management after cardiac catheterization via right radial approach.
2. Given lack of reversible etiology of explain arrest, will recommend ICD implantation prior to discharge.
3. Continue amio gtt for full loading dose. Cont. PO metoprolol.
4. Cont. ASA/statin, goal LDL<55.
5. Stop heparin gtt.
6. Transition nitro gtt to oral medications for BP control.
Signed: Joel Zepeda MD, PhD
--- NOTE | 2024-01-30 12:30 | PTCARENOTE ---
Report received from NIKOLAY RN. Titrate down nitro to wean off per protocol. NSR with pac's/pvc.
[2024-01-30] MEDS: COZAAR 25 MG PO (13:44)
--- NOTE | 2024-01-30 14:46 | CM ---
Reviewed chart. Met with Mr. Morel to review discharge plans. He states prior to admission he resides with his 95 year old mother in a one story home with three steps to enter. He states prior to admission he was independent with ambulation
and adls. He states there is a walker and wheelchair at home for his mother. He states his sister is taking care of their mother while he is here. He states he does not use any DME in the home. He states he has a prescription plan. He states
his friend brought him and his mother here for the wedding and his friend will come back to transport him home. Will need to see his current functional level to see if he will have any skilled care needs. Medical work-up in progress. The
discharge plan is to return home with his mother when meidcally stable.
[2024-01-30] MEDS: APRESOLINE 10 MG IV ×2 (15:48→23:25)
[2024-01-30] MEDS: LOVENOX 40 MG SC (17:52)
--- NOTE | 2024-01-30 20:30 | PTCARENOTE ---
Rec'd pt at change of shift as a transfer from CVICU. Pt on TELE monitor in NSR with VSS and AAO*3. Pt reports intermittent chest pain with movement and activity from rib fractures. Pt with Amio infusing as ordered (see mar and flowsheet for
administration details). Pt post heart cath via right radial artery, dressing CDI. Pt agreed to RUE restrictions. Pt resting with call patel in reach. Plan of care ongoing.
[2024-01-30] MEDS: LIPITOR 80 MG PO (22:36)
[2024-01-30] MEDS: ASPIR LOW (ENTERIC COATED) 81 MG PO (22:36)
--- NOTE | 2024-01-30 23:45 | PTCARENOTE ---
Pt with elevated BP at 2300. Pt given hydralazine 10mg IV as ordered PRN. See MAR for full administration details. BP taken 30 minutes after administration and now 165/67. Pt resting with call patel in reach. Plan of care ongoing.
[2024-01-31] VITALS (21 sets, daily range): BP systolic 149–192; BP diastolic 65–91; BMI 32.3
[2024-01-31] MEDS: DILAUDID 0.5 MG IV (00:51)
[2024-01-31] MEDS: APRESOLINE 10 MG IV ×2 (04:14→19:37)
[2024-01-31] MEDS: CORDARONE 518 MG IV (04:47)
[2024-01-31 05:00] LABS: Hematocrit 35.7 % (39.0-52.0); Hemoglobin 12.6 g/dL (13.0-18.0); Mean Corp Hgb Conc. 35.3 g/dL (33.0-37.0); Mean Corpuscular Hgb 32.5 pg (27.0-31.0); Mean Platelet Volume 10.9 fL (7.4-10.4); Platelet Count 152 10^3/uL (130-400); Red Blood Cell Count 3.88 10^6/uL (4.70-6.10); Red Cell Dist. Width 12.4 % (11.5-14.5); White Blood Cell Count 9.6 10^3/uL (4.8-10.8)
[2024-01-31 05:24] LABS: Blood Urea Nitrogen 39 mg/dl (9-20); Calcium 8.9 mg/dl (8.4-10.2); Carbon Dioxide 25 mmol/L (22-30); Chloride 106 mmol/L (98-107); Estimated Creatinine Clearance 81 ml/min; Glucose 144 mg/dl (70-99); Magnesium 2.8 mg/dl (1.6-2.3); Potassium 4.3 mmol/L (3.5-5.1); Sodium 142 mmol/L (135-145); eGFR > 60.00
[2024-01-31] MEDS: ROXICODONE 10 MG PO (06:09)
[2024-01-31] MEDS: TOPROL XL 25 MG PO (08:08)
[2024-01-31] MEDS: COZAAR 25 MG PO (08:08)
[2024-01-31] MEDS: MAGNESIUM OXIDE 500 MG PO ×2 (08:08→19:36)
[2024-01-31] MEDS: PROTONIX IV 40 MG IV ×2 (08:09→19:38)
[2024-01-31] MEDS: NSS (PRESERVATIVE FREE) 10 ML IV ×2 (08:09→19:38)
[2024-01-31] MEDS: FLUSH (NSS) 3 FLUSH IV (08:10)
--- NOTE | 2024-01-31 09:17 | PTCARENOTE ---
The patient is aaox3, vital signs are stable. NSR is noted on the monitor. He complains of rib fracture pain when ever he moves or coughs. 'If I'd known that I'd feel like this I would have never had them do CPR.' He has a heart pillow to help with
movement pain. His lungs are diminished throughout with poor effort on his part. I explained to him the importance of deep breathing to clear his lungs. He said. 'I wished I'd never been brought back.' However, he did ask for suction to help when he
does cough something up. He stated that he coughed up dark red phlegm yesterday. Suction set up for the patient. I explained to him what to expect when he gets his ICD placed today. His CHG wipes were done per order.
--- NOTE | 2024-01-31 09:27 | W.PN.CD ---
Today's Communication / Plan
-
- ICD placement today
Impression / Plan
-
Suspected VT/VF arrest with shockable rhythm on AED:
-witnessed at a wedding, CPR, AED with 2 shocks given. We dont not have strips at this time.
-did not require intubation when EMS arrive and was awake but slightly confused.
-[facility] 01/30/24 - with moderate, IVUS-negative distal left main disease; no coronary blockade to explain arrest
-cont ASA 81mg daily, Toprol XL 25mg daily, continue IV amio, STOP IV heparin, wean IV nitro with oral BP meds
-requires intensive monitoring of labs, tele
-ICD placement today - Off Heprin for now.
- Switch IV amio to PO.
-echo shows EF 50%, TDS; will follow up with contrast study
-plan for secondary prevention ICD today
Tachy Alonso syndrome
- Multiple PACs, PVC and PAT noted with baseline lower heart rate.
- With VT/VF, would like to start Metoprolol.
- Given ICD is planned, would consider adding atrial lead as well with high risk of SVT to reduce risk of inappropriate shocks.
HTN:
-outpatient losartan-HCTZ and cardia on hold;
elevated calcium score, hyperlipidemia:
-chronic atorvastatin 80mg daily
-LDL 53
R carotid atherosclerosis:
-noted on CXR this admit , described as mild
-con't statin, asa
Physical Exam
Vital Signs/Labs
Vital Signs
Temp Pulse Resp BP Pulse Ox
98.3 F 80 20 165/77 95
01/31/24 07:19 01/31/24 07:14 01/31/24 07:19 01/31/24 07:14 01/31/24 07:19
01/30/24 01/31/24 02/01/24
06:59 06:59 06:59
Actual Weight 98.7 kg 99 kg
01/31/24 04:43
01/31/24 04:43
PT 14.5 Sec (11.4-14.6) 01/28/24 06:10
INR 1.10 01/28/24 06:10
APTT Cancelled 01/30/24 12:00
Magnesium 2.8 mg/dl (1.6-2.3) H 01/31/24 04:43
Triglycerides 80 mg/dl (10-149) 01/28/24 06:10
LDL Cholesterol, Calc 53 mg/dl 01/28/24 06:10
VLDL Cholesterol, Calc 16 mg/dl (0-30) 01/28/24 06:10
HDL Cholesterol 42 mg/dl 01/28/24 06:10
01/27/24 01/27/24
22:07 22:43
Lux-M-Cgwokkpnmnv Pept 170 Cancelled
LAB Results
01/28/24 01/28/24
10:58 17:42
Troponin I 2.260 H* D 1.540 H* D
Physical Exam
Constitutional: No acute distress and Comfortable
EENT: Anicteric and Moist mucous membranes
Cardiovascular: Rhythm & rate is regular, JVD present, Systolic murmur present and Other (tender left sided chest wall. )
Respiratory: Respiratory effort normal and Wheeze Absent
GI: Soft, Non tender and Normal bowel sounds
Other: Cath Site
Data Reviewed
-
Date of Service: January 31, 2024
Medical Decision Making: Reviewed Test Results
EKG: Tracing Personally Visualized and interpreted
Echo: Report Reviewed by me
Labs: Labs Reviewed by me
Old Records: Reviewed
[2024-01-31] MEDS: TORADOL 15 MG IV (10:44)
[2024-01-31] MEDS: FLUSH (NSS) 2 FLUSH IV (10:45)
[2024-01-31] MEDS: ROXICODONE 15 MG PO ×2 (12:32→22:26)
[2024-01-31] MEDS: TYLENOL 1000 MG PO ×3 (12:33→23:02)
--- NOTE | 2024-01-31 13:02 | CM ---
Chart reviewed. Patient is independent of ADLS, lives with his mother in a 1 sTH, 3 JENA, 0 DME. Patient expressed concern about being able to sit in a car for an extended period of time due to rib pain. Also patient expressed concern about taking
care of his mom once he is at home. Patient's sister is staying with his mom currently. Plan is for the patient to return home. CM to follow
--- NOTE | 2024-01-31 15:00 | ITS.CL.ICD ---
Divorce Lawyer - ICD
Implantable Cardioverter Defibrillator
Procedure Report:
Dual Chamber Implantable Cardioverter Defibrillator Placement:
Mr. Covarrubias is a 74-year-old male with out of hospital cardiac arrest with sustained VT s/p DCCV with non-obstructive CAD has noted to have baseline bradycardia and PACs. He has a class II indication for pacemaker for sick sinus syndrome and is
getting ICD for secondary prevention for his ventricular tachycardia.
Secondary prevention ICD. Ventricular tachycardia with sustained VT with cardiac arrest and sinus bradycardia
Indications: Sick sinus syndrome with ventricular tachycardia.
Date of the Procedure:
01/31/2024
Pre-Operative Diagnosis: sick sinus syndrome with ventricular tachycardia.
Post-Operative Diagnosis: Ventricular tachycardia and sick sinus syndrome
Procedure Performed: DUAL CHAMBER IMPLANTABLE CARDIOVERTER DEFIBRILLATOR IMPLANTATION
Performing Physician:
Kiko Suarez MD
Anesthesia:
See anesthesia report
Detailed Description of the Procedure:
The patient was identified using hospital identification and informed consent obtained for the procedure. The risks were explained including, but not limited to: Bleeding, infection, arrhythmia, stroke, vascular/cardiac/lung puncture, surgery,
pacemaker dependency/device malfunction. All questions were answered.
The patient was brought to the electrophysiology laboratory in stable condition in fasting state. Continuous electrocardiographic and hemodynamic monitoring was initiated. The initial rhythm was sinus bradycardia.
The procedure site was meticulously prepared with surgical scrub and allowed to dry with no pooling. Sterile draping was applied to cover the procedure site. The image intensifier was draped with sterile bag and positioned over the patient.
The left infra-clavicular region was prepped and draped in the usual sterile fashion. Local anesthesia was administered subcutaneously using 1% lidocaine / Bupivacaine. The left cephalic vein cut-down was performed with an incision at the
delto-pectoral groove, and vascular sheaths were introduced for lead access. These were advanced into the right ventricle and the right atrium.
The right ventricular lead was secured in position with an active fixation technique at the apical septal location.
The RA lead was attached in the right atrial appendage with active fixation.
There was excellent sensing, pacing, and impedance from the leads, with no diaphragmatic stimulation at 10 V output.�Bovie cautery, antibiotics, and fluoroscopy were used.
The sheath was withdrawn, and the thresholds remained acceptable. The lead was secured in position at the venous entry site with 2-0 Ethibond. A pocket was fashioned contiguous to the incision. The electrode terminals were connected to the pulse
generator, which was placed into the pocket. The wound was irrigated thoroughly with antibiotic solution and closed in 3 layers using 2-0 VLoc sutures followed by 2 layers of 4-0 V-loc sutures. Steri-Strips and a bandage were applied externally.�
Procedure End:
The procedure was tolerated well. A bandage was applied to the incision area.
Estimated Blood loss:
5 cc
Fluoro time:
1.8min / 13.5 mGy
Specimens Removed:
No cultures and no specimens were obtained. No intraoperative pathology was identified.
Urine output:
None
Packs / Drains/ Tubes:
None
Instrument / Sponge Count Correct:
Yes
Complications of the Procedure:
None
Condition of Patient at Time of Transfer:
Hemodynamically stable with no neurological or vascular compromise.
Device information:�
Generator: MyVR; Model: VICD2P0; Serial # [id number]�
Atrial Lead: MyVR; Model: 5076-52; Serial # [id number]
Measured data in the right atrium was sensing of 0.8 mV, impedance of 420 ohms and threshold of 0.75 V at 0.4ms�
RV Lead: Medtronic; Model: 6935M-62; Serial # [id number]
Measured data in the RV lead was sensing of 9 mV, impedance of 460 ohms and threshold of 0.75 V at 0.4ms�
PROGRAMMING PARAMETERS:�
Alonso parameter settings were AAIR <=>DDDR 50-130 bpm. �
��������������� Mode switch: On
��������������� Paced AV delay: 130 ms
��������������� Sensed AV delay: 100 ms
��������������� Rate Adaptive A-V Interval: Off
Output parameters:
������������������������������� Amplitude (V)������������������� Pulse Width (ms)������������� Sensitivity (mV)
��������������� RA: ������� 3.5 ������������������������ ��������������� 0.4������������������������� ��������������� 0.3
��������������� RV:�������� 3.5������������������������� ��������������� 0.4������������������������� ��������������� 0.3
Tachy parameter settings:
��������������� SVT discrimination: On
��������������� AF/AFl: On
��������������� SVT limit: 260 msec
��������������� VT zone:
������������������������������� Slow VT: 150 - 170 bpm --> Monitor
������������������������������� Fast VT: 170-200 bpm --> ATP then Shock
������������������������������� VF: >200 bpm --> Shock x6 (ATP before and during)
�
Summary:
Successful implantation of MRI compatible dual chamber Medtronic implantable Cardioverter Defibrillator.�
Results/Recommendations:
-Please follow up CXR�
1. Please provide patient with adequate pain control�
Instructions to be given to patient:�
- Please follow up with [facility] at [address] [place] [address] ([phone]) to get your wound checked within 14 days of your discharge.
- Do not soak incision site until after it is evaluated at cardiology clinic. OK to showers followed by dab dry the area. No baths or swimming until then. Sponge baths are OK.�
- Allow 'steri strips' to fall off on their own�
- Do not lift left elbow above shoulder, particularly with sudden jerking movements, for 1 month�
- Do not lift anything weighing more than 5 pounds with the left arm for 1 month�
- If you notice any fevers, shortness of breath, lightheadedness, chest pain, or worsening swelling in the wound site, please contact the arrhythmia clinic, contact your textile colorist dyer, or present to the hospital for evaluation.�
Kiko Suarez MD
Electrophysiology
[2024-01-31] MEDS: MIRALAX 17 GRAMS PO (15:37)
--- NOTE | 2024-01-31 15:37 | PTCARENOTE ---
Received the patient from the labor delivery specialist in his bed. The patient is aaox3, vss, 94% on 2L. He has no complaints of pain. NSR with occasional apacing is noted on the monitor. Left chest wall dressing is C/D/I. His left arm immobilizer is in place. His
call patel is within reach.
--- NOTE | 2024-01-31 16:24 | PTCARENOTE ---
Amiodarone gtt discontinued, IV removed.
--- NOTE | 2024-01-31 16:55 | W.PN.HOSP.TC ---
Today's Communication/Plan
-
adjust pain medication
f/u renal function
increase BP meds dose for morning
Assessment / Plan
Assessment / Plan
HPI:
74 y/o male status post cardiac arrest during the wedding ceremony. 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
presented to the emergency department following a cardiac arrest at a wedding during which AED which was applied and advised shock x 2 for V-Fib arrest. Patient denies any symptoms prior to the arrest. He was not having any recent episodes of
chest pain dyspnea on exertion lower extremity edema palpitations lightheadedness dizziness nausea vomiting or diaphoresis. He had no recent or infectious symptoms. Weakness is the patient suddenly collapsed and CPR was immediately started.
Rhythm was V-fib and patient had two defibrillations. He had ROSC at that time. There was an attempt to intubate the patient but he was awake enough and alert enough to not require intubation.
At the time of admission in the emergency department, patient was awake and alert moving all 4 extremities. He was disoriented and mildly confused. He had no focal deficits. He was able to provide his past medical history to some degree. He
apparently was originally from [facility] for a wedding. There is a reported that he has a executor of his estate/POA who reported that the patient has a history of thrombocytosis. All labs are pending at this time. Cardiology
notified. He did complain of substernal chest pain while in the ED. IR notified as well.
ECG NSR, no acute ischemia. QTc 480.
TTE
Low normal left ventricular systolic function. Left ventricular ejection fraction is 50%.
Wall motion analysis is limited by the image quality. Mildly enlarged right ventricular size. Normal right ventricular systolic function.
No significant valve disease.

1. Cardiac arrest
Presumed VT/VF as AED delivered x2 shocks
- CT head with no acute abnormality
- Admission EKG showing NSR with PACs, QTc WNL
- TTE report as above
- CXR with with 'Mild atherosclerotic calcifications of the right carotid bifurcation,' as per radiologist's report, otherwise no pneumothorax or focal airspace disease
- Troponin so far peaked at 3.030
- LHC did not show any problematic CAD. No stenting required
- Patient was taken off of heparin drip as well as nitro drip
- Cardio planning to take patient to lab again today for ICD placement
2. Mild TME - resolved
- post cardiac arrest and mild anoxic brain injury related
- CT head did not show any major edema changes, repeat imaging with MRI brain if have persistent issue
- No secondary infection to confound the encephalopathy
3. Rib pain
- From chest compression
- Dedicated rib xr will be required if not improved in next few days, no reported rib fracture on initial PA CXR.
- Patient off heparin drip/renal function stable will provide Toradol doses
- also starting Tylenol 1 g every 8 hour and increasing as needed oxycodone dose
4. Leukocytosis w/o fever -resolved
- continue monitor
5. Normocytic anemia
- monitor with heparin drip.
- no concern of bleeding
6. Pre-diabetic
- A1c of 5.9
- will add SGLT2 inhibitor/metformin
History of Thrombocytosis?
Right carotid atherosclerosis noted on chest x-ray
Essential HTN - HCTZ/losartan on hold.
Hyperlipidemia - continue Atorvastatin
GERD - Protonix IV
TERESA on CPAP - patient uses CPAP at home
Possible CVA in the past.
Obesity.
Hernia repair.
Full Code
DVT Prophylaxis: lovenox
Patient possibly approved for acute rehab although patient visiting from [place] may not agreeable due to social/home situation and need to travel back to [place]. Asked CM to discuss.
Anticipated Discharge: 24 - 48 hours
Subjective/Interval History
-
Date of Service: January 31, 2024
Patient continues have significant pain involving rib cage
No bowel movements although denies of having any abdominal pain/nausea/vomiting
Afebrile
No other reported issues
Objective Data
-
Labs:
Laboratory Results
01/31/24
04:43
WBC 9.6
Hgb 12.6 L
Hct 35.7 L
Plt Count 152
Sodium 142
Potassium 4.3
Chloride 106
Carbon Dioxide 25
BUN 39 H
Creatinine 0.9
Glucose 144 H
Calcium 8.9
Vital Signs:
Vital Signs
Temp Pulse Resp BP Pulse Ox
98 F 70 18 149/84 94
01/31/24 15:20 01/31/24 16:00 01/31/24 15:20 01/31/24 15:14 01/31/24 15:20
I&O
01/30/24 01/31/24 02/01/24
06:59 06:59 06:59
Intake Total 483.8 / 576.5 426.2 / 426.2
Output Total 720 / 720 325 / 325 525 / 525
Balance -236.2 / -143.5 101.2 / 101.2 -525 / -525
Review of Systems
-
Respiratory: Reports No Symptoms
Cardiac: Reports No Symptoms
Abdomen/GI: Reports No Symptoms
Physical Exam
-
General: No Apparent Distress and Comfortable
HEENT: Negative Oxygen
Respiratory: Clear to Auscultation and Other (diffuse rib tenderness)
Cardiac: Regular Rhythm and S1/S2; Negative Murmur or Rub
GI: Soft, Nontender and Nondistended
Musculoskeletal: No Edema
Neuro: Awake, Alert, Oriented, No Motor Deficits and Nonfocal/Grossly Intact
Psych: Calm
--- NOTE | 2024-01-31 19:30 | PTCARENOTE ---
Rec'd pt at change of shift. Pt AAO*3, on TELE monitor in NSR and A-paced at times, and VSS. Pt with MIRIAN chest wall dressing CDI. L arm immobilizer in place and pt verbalized understanding of L limb restriction. R radial site also CDI and pt
agreed to R upper limb restrictions. Pt denies any current pain and agreed to report pain immediately to staff as it occurs. Pt resting with call patel in reach. Plan of care ongoing.
[2024-01-31] MEDS: ANCEF 5 IV (19:36)
[2024-01-31] MEDS: PACERONE 400 MG PO (19:37)
[2024-01-31] MEDS: LIPITOR 80 MG PO (22:26)
[2024-01-31] MEDS: ASPIR LOW (ENTERIC COATED) 81 MG PO (22:27)
[2024-02-01] VITALS (10 sets, daily range): BP systolic 133–193; BP diastolic 77–116; BMI 32.0
[2024-02-01] MEDS: ANCEF 5 IV (03:59)
[2024-02-01 04:53] LABS: Hemoglobin 11.5 g/dL (13.0-18.0); Mean Corp Hgb Conc. 33.8 g/dL (33.0-37.0); Mean Corpuscular Hgb 31.9 pg (27.0-31.0); Mean Corpuscular Volume 94.4 fL (80.0-94.0); Platelet Count 160 10^3/uL (130-400); Red Cell Dist. Width 12.3 % (11.5-14.5); White Blood Cell Count 9.4 10^3/uL (4.8-10.8)
[2024-02-01 05:15] LABS: Blood Urea Nitrogen 47 mg/dl (9-20); Calcium 8.7 mg/dl (8.4-10.2); Carbon Dioxide 25 mmol/L (22-30); Chloride 105 mmol/L (98-107); Estimated Creatinine Clearance 66 ml/min; Glucose 138 mg/dl (70-99); Magnesium 2.7 mg/dl (1.6-2.3); Potassium 4.5 mmol/L (3.5-5.1); Sodium 142 mmol/L (135-145); eGFR > 60.00
[2024-02-01] MEDS: TYLENOL 1000 MG PO ×2 (07:37→15:03)
[2024-02-01] MEDS: PACERONE 400 MG PO ×2 (07:38→18:41)
[2024-02-01] MEDS: COZAAR 50 MG PO (07:38)
[2024-02-01] MEDS: TOPROL XL 25 MG PO ×2 (07:38→12:43)
[2024-02-01] MEDS: MAGNESIUM OXIDE 500 MG PO ×2 (07:38→18:41)
[2024-02-01] MEDS: NSS (PRESERVATIVE FREE) 10 ML IV ×2 (07:38→18:42)
[2024-02-01] MEDS: MIRALAX 17 GRAMS PO (07:39)
[2024-02-01] MEDS: PROTONIX IV 40 MG IV ×2 (07:39→18:41)
--- NOTE | 2024-02-01 09:30 | W.PN.CD ---
Today's Communication / Plan
-
Additional blood pressure control required. Losartan just increased. Would also increase beta-henrique.
Patient remains on 2 L. Nursing will try to wean.
ICD site appears fine.
Impression / Plan
-
Suspected VT/VF arrest with shockable rhythm on AED:
-witnessed at a wedding, CPR, AED with 2 shocks given. We dont not have strips at this time.
-did not require intubation when EMS arrive and was awake but slightly confused.
-[facility] 01/30/24 - with moderate, IVUS-negative distal left main disease; no coronary blockade to explain arrest
-cont ASA 81mg daily, Toprol XL 25mg daily, continue IV amio, STOP IV heparin, wean IV nitro with oral BP meds
-requires intensive monitoring of labs, tele
-ICD placement 01/30
- amio PO.
-echo shows EF 50%, TDS; will follow up with contrast study
Tachy Alonso syndrome
- Multiple PACs, PVC and PAT noted with baseline lower heart rate.
- With VT/VF, would like to start Metoprolol.
- ICD implanted this admit
nonobstructive CAD by cath this admit
- ASA
-Statin
HTN:-Suboptimal control
-Titrate beta-henrique
-Titrate losartan which was increased earlier today
R carotid atherosclerosis:
-noted on CXR this admit , described as mild
Physical Exam
Vital Signs/Labs
Vital Signs
Temp Pulse Resp BP Pulse Ox
99.2 F 87 20 153/96 95
02/01/24 07:04 02/01/24 09:07 02/01/24 07:04 02/01/24 09:07 02/01/24 07:04
01/31/24 02/01/24 02/02/24
06:59 06:59 06:59
Actual Weight 98.1 kg
02/01/24 03:57
02/01/24 03:57
PT 14.5 Sec (11.4-14.6) 01/28/24 06:10
INR 1.10 01/28/24 06:10
APTT Cancelled 01/30/24 12:00
Magnesium 2.7 mg/dl (1.6-2.3) H 02/01/24 03:57
Triglycerides 80 mg/dl (10-149) 01/28/24 06:10
LDL Cholesterol, Calc 53 mg/dl 01/28/24 06:10
VLDL Cholesterol, Calc 16 mg/dl (0-30) 01/28/24 06:10
HDL Cholesterol 42 mg/dl 01/28/24 06:10
01/27/24 01/27/24
22:07 22:43
Mmd-R-Pvlrffphtsa Pept 170 Cancelled
Physical Exam
Constitutional: No acute distress
EENT: Anicteric
Cardiovascular: Rhythm & rate is regular
Respiratory: Wheeze Absent and Rhonchi Absent
GI: Soft and Non tender
Other: Other (icd site fine)
Data Reviewed
-
Date of Service: February 01, 2024
Medical Decision Making: Reviewed Test Results
Echo: Report Reviewed by me
Medical Tests (PFT, Pathology etc): Report Reviewed by me
Labs: Labs Reviewed by me
--- NOTE | 2024-02-01 11:42 | CM ---
Addendum entered by Lily Jacobo RN 02/01/24 16:50:
PT evaluation recommend Home PT. Patient said his sister is having someone come into the house to help him and his mom and he is not interested in us setting up VN.
Original Note:
Chart reviewed. Patient is independent of ADLS, lives with his mother in a 1 STH, 3 JENA, 0 DME. Patient's friend is going to transport patient back to [place]. PT evaluation recommending Acute Rehab. Patient say he has his mothers RW at home he
can use if needed and prefers to go home. I spoke to the nurse and patient is doing much better, getting up and walking to the bathroom independently. Waiting for PT to reevaluate. Plan is for the patient to return home. CM to follow
[2024-02-01] MEDS: SENNA SYRUP 8.8 MG PO (12:43)
--- NOTE | 2024-02-01 13:34 | W.PN.HOSP.TC ---
Today's Communication/Plan
-
BP meds adjustment
laxatives
continue pain control
PT/OT
Assessment / Plan
Assessment / Plan
HPI:
74 y/o male status post cardiac arrest during the wedding ceremony. 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
presented to the emergency department following a cardiac arrest at a wedding during which AED which was applied and advised shock x 2 for V-Fib arrest. Patient denies any symptoms prior to the arrest. He was not having any recent episodes of
chest pain dyspnea on exertion lower extremity edema palpitations lightheadedness dizziness nausea vomiting or diaphoresis. He had no recent or infectious symptoms. Weakness is the patient suddenly collapsed and CPR was immediately started.
Rhythm was V-fib and patient had two defibrillations. He had ROSC at that time. There was an attempt to intubate the patient but he was awake enough and alert enough to not require intubation.
At the time of admission in the emergency department, patient was awake and alert moving all 4 extremities. He was disoriented and mildly confused. He had no focal deficits. He was able to provide his past medical history to some degree. He
apparently was originally from [facility] for a wedding. There is a reported that he has a executor of his estate/POA who reported that the patient has a history of thrombocytosis. All labs are pending at this time. Cardiology
notified. He did complain of substernal chest pain while in the ED. IR notified as well.
ECG NSR, no acute ischemia. QTc 480.
TTE
Low normal left ventricular systolic function. Left ventricular ejection fraction is 50%.
Wall motion analysis is limited by the image quality. Mildly enlarged right ventricular size. Normal right ventricular systolic function.
No significant valve disease.

1. Cardiac arrest
Presumed VT/VF as AED delivered x2 shocks
- CT head with no acute abnormality
- Admission EKG showing NSR with PACs, QTc WNL
- TTE report as above
- CXR with with 'Mild atherosclerotic calcifications of the right carotid bifurcation,' as per radiologist's report, otherwise no pneumothorax or focal airspace disease
- Troponin so far peaked at 3.030
- LHC did not show any problematic CAD. No stenting required
- s/p ICD on 01/30 , post op care per EP cards.
2. Mild TME - resolved
- post cardiac arrest and mild anoxic brain injury related
- CT head did not show any major edema changes, repeat imaging with MRI brain if have persistent issue
- No secondary infection to confound the encephalopathy
3. Rib pain
- From chest compression
- Dedicated rib xr will be required if not improved in next few days, no reported rib fracture on initial PA CXR.
- Patient off heparin drip/renal function stable will provide Toradol doses
- also starting Tylenol 1 g every 8 hour and increasing as needed oxycodone dose
4. Leukocytosis w/o fever -resolved
- continue monitor
5. Normocytic anemia
- monitor with heparin drip.
- no concern of bleeding
6. Pre-diabetic
- A1c of 5.9
- will add SGLT2 inhibitor/metformin
7. Essential HTN - uncontrolled
-Dose of losartan increased to 50 mg daily
-Toprol-XL dose increased to 50 mg daily as well
-As needed hydralazine for systolic blood pressure greater than 160
History of Thrombocytosis?
Right carotid atherosclerosis noted on chest x-ray
Essential HTN - HCTZ/losartan on hold.
Hyperlipidemia - continue Atorvastatin
GERD - Protonix IV
TERESA on CPAP - patient uses CPAP at home
Possible CVA in the past.
Obesity.
Hernia repair.
Full Code
DVT Prophylaxis: lovenox
Patient declined acute rehab discharge plan. Patient planning to go home post medical clearance.
Anticipated Discharge: Within 24 hours
Subjective/Interval History
-
Date of Service: February 01, 2024
Rib cage pain somewhat improved
No bowel movement overnight
No chest discomfort/palpitation//dizziness
Objective Data
-
Labs:
Laboratory Results
02/01/24
03:57
WBC 9.4
Hgb 11.5 L
Hct 34.0 L
Plt Count 160
Sodium 142
Potassium 4.5
Chloride 105
Carbon Dioxide 25
BUN 47 H
Creatinine 1.1
Glucose 138 H
Calcium 8.7
Vital Signs:
Vital Signs
Temp Pulse Resp BP Pulse Ox
98.5 F 101 20 139/84 97
02/01/24 11:01 02/01/24 12:43 02/01/24 11:01 02/01/24 12:43 02/01/24 11:01
I&O
01/31/24 02/01/24 02/02/24
06:59 06:59 06:59
Intake Total 426.2 / 426.2 960 / 960
Output Total 325 / 325 525 / 525
Balance 101.2 / 101.2 435 / 435
Review of Systems
-
Respiratory: Reports No Symptoms
Cardiac: Reports No Symptoms
Abdomen/GI: Reports No Symptoms
Physical Exam
-
General: No Apparent Distress and Comfortable
HEENT: Negative Oxygen
Respiratory: Clear to Auscultation and Other (diffuse rib tenderness)
Cardiac: Regular Rhythm and S1/S2; Negative Murmur or Rub
GI: Soft, Nontender and Nondistended
Musculoskeletal: No Edema
Neuro: Awake, Alert, Oriented, No Motor Deficits and Nonfocal/Grossly Intact
Psych: Calm
[2024-02-01] MEDS: SENNA SYRUP PO (18:47)
[2024-02-01] MEDS: ASPIR LOW (ENTERIC COATED) 81 MG PO (22:31)
[2024-02-01] MEDS: LIPITOR 80 MG PO (22:32)
--- NOTE | 2024-02-01 23:00 | PTCARENOTE ---
Pt received at change of shift. Afib on tele with HR 90s-110, up to 120 with ambulation. Cath site and L chest wall AICD site c/d/i with no complications noted. Denies CP and SOB. Activity restrictions discussed and pt verbalizes understanding.
Ambulating in room without difficulty. Can make needs known. Call patel within reach.
[2024-02-02] MEDS: TYLENOL 1000 MG PO ×2 (01:28→08:38)
[2024-02-02 04:54] VITALS: BP 152/102
[2024-02-02 05:28] LABS: Hematocrit 34.9 % (39.0-52.0); Hemoglobin 12.3 g/dL (13.0-18.0); Mean Corp Hgb Conc. 35.2 g/dL (33.0-37.0); Mean Corpuscular Hgb 32.4 pg (27.0-31.0); Mean Corpuscular Volume 91.8 fL (80.0-94.0); Mean Platelet Volume 10.3 fL (7.4-10.4); Platelet Count 144 10^3/uL (130-400); Red Cell Dist. Width 12.2 % (11.5-14.5); White Blood Cell Count 9.3 10^3/uL (4.8-10.8)
[2024-02-02 05:46] LABS: Blood Urea Nitrogen 35 mg/dl (9-20); Calcium 8.6 mg/dl (8.4-10.2); Carbon Dioxide 26 mmol/L (22-30); Chloride 108 mmol/L (98-107); Estimated Creatinine Clearance 81 ml/min; Glucose 125 mg/dl (70-99); Sodium 143 mmol/L (135-145); eGFR > 60.00
[2024-02-02 06:00] VITALS: BMI 31.4
--- NOTE | 2024-02-02 06:37 | PTCARENOTE ---
RN noted that it has not been documented that pt is in Afib. Afib present since start of shift. EKG obtained which confirmed Afib. mail [employer] Instructor Dr. Woo notified. No new orders at this time.
[2024-02-02 08:30] VITALS: BP 167/110
[2024-02-02] MEDS: PROTONIX IV 40 MG IV (08:38)
[2024-02-02] MEDS: TOPROL XL 50 MG PO (08:38)
[2024-02-02] MEDS: PACERONE 400 MG PO (08:38)
[2024-02-02] MEDS: NSS (PRESERVATIVE FREE) 10 ML IV (08:38)
[2024-02-02] MEDS: MIRALAX PO (08:39)
[2024-02-02] MEDS: COZAAR 50 MG PO (08:39)
[2024-02-02] MEDS: FLUSH (NSS) 3 FLUSH IV (08:39)
[2024-02-02] MEDS: SENNA SYRUP PO (08:39)
--- NOTE | 2024-02-02 08:52 | PTCARENOTE ---
The patient is aaox3, vss, 95% on RA. Afib is noted on the monitor. Afib booklet and oral education given to the patient. He is ambulatory in his room without assist. He complaints of chest 'rib' pain. He rates it a 9/10 on scale with movements. He
is agreeable to the schedule Tylenol. Left chest wall dressing has scant ole dressing. Activity restrictions reviewed with him. His call patel is within reach.
--- NOTE | 2024-02-02 09:25 | W.PN.CD ---
Addendum entered and electronically signed by Satish Morris MD 02/02/24 11:36:
error below Eliquis is 5mg po BID not daily
Original Note:
Today's Communication / Plan
-
Stop aspirin 81 mg daily
Start Eliquis 5 mg p.o. daily
Continue amiodarone 400 mg p.o. twice daily for 2 weeks then 400 mg daily.
No contraindication to discharge home if able to obtain p.o. medications for tonight given the holiday and pharmacies being closed.
He follows up with cardiology in [place] where he lives.
Impression / Plan
-
Suspected VT/VF arrest with shockable rhythm on AED:
-witnessed at a wedding, CPR, AED with 2 shocks given. We dont not have strips at this time.
-did not require intubation when EMS arrive and was awake but slightly confused.
-[facility] 01/30/24 - with moderate, IVUS-negative distal left main disease; no coronary blockade to explain arrest
-cont Toprol XL 25mg daily, continue IV amio, STOP IV heparin, wean IV nitro with oral BP meds
-requires intensive monitoring of labs, tele
-ICD placement 01/30
- amio PO. ---would continue BID for 2 weeks then once a day
-echo shows EF 50%, TDS; will follow up with contrast study
Tachy Alonso syndrome
- Multiple PACs, PVC and PAT noted with baseline lower heart rate.
- With VT/VF, would like to start Metoprolol.
- ICD implanted this admit
AF:
-new, paroxysmal over the last 24 hours on amiodarone.
-[id number] score is a 4, age, hypertension, CAD
-Will stop aspirin and start Eliquis 5 mg p.o. twice daily.
-If remains in A-fib at follow-up visit with medical scribe, could arrange cardioversion at that time.
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
- ASA---Stopping for Eliquis
-Statin
HTN:-Suboptimal control
-Beta-henrique and losartan both increased yesterday
-Pain is likely driving up values, better pain control would be helpful
R carotid atherosclerosis:
-noted on CXR this admit , described as mild
Subjective:
No chest pain, palpitations. Diffuse chest wall pain especially with movement and inspiration.
Physical Exam
Vital Signs/Labs
Vital Signs
Temp Pulse Resp BP Pulse Ox
98.5 F 86 20 167/110 95
02/02/24 08:30 02/02/24 08:34 02/02/24 08:30 02/02/24 08:30 02/02/24 08:30
02/01/24 02/02/24 02/03/24
06:59 06:59 06:59
Actual Weight 98.1 kg 96.5 kg
02/02/24 05:12
02/02/24 05:12
PT 14.5 Sec (11.4-14.6) 01/28/24 06:10
INR 1.10 01/28/24 06:10
APTT Cancelled 01/30/24 12:00
Magnesium 2.7 mg/dl (1.6-2.3) H 02/01/24 03:57
Triglycerides 80 mg/dl (10-149) 01/28/24 06:10
LDL Cholesterol, Calc 53 mg/dl 01/28/24 06:10
VLDL Cholesterol, Calc 16 mg/dl (0-30) 01/28/24 06:10
HDL Cholesterol 42 mg/dl 01/28/24 06:10
01/27/24 01/27/24
22:07 22:43
Hmv-[id number] Pept 170 Cancelled
Physical Exam
Constitutional: No acute distress
Cardiovascular: Pedal edema is absent, Diastolic murmur absent and Rhythm/rate is irregular
Respiratory: Respiratory effort normal, Lungs clear to auscul., Wheeze Absent, Crackles Absent and Rhonchi Absent
Neuro/Psych: AO x 3
Data Reviewed
-
Date of Service: February 02, 2024
Medical Decision Making: Review of Case with other Provider (Reviewed the case with Dr. Medina, discussed challenges with discharge he is hoping to help him arrange medications for the evening if not we may need to stay tomorrow)
EKG: Other (Atrial fibrillation with controlled ventricular response, this was present yesterday around 7 AM, then was back in normal sinus rhythm midday yesterday now back in atrial fibrillation.)
X-Ray/CT/US/MRI/NUC/PET: Discussed with Family (I updated his sister at his request)
[2024-02-02 09:30] VITALS: BP 151/101
[2024-02-02 11:55] VITALS: BP 150/98
[2024-02-02] MEDS: ELIQUIS 5 MG PO (12:14)
--- NOTE | 2024-02-02 12:42 | W.PN.HOSP.TC ---
Addendum entered and electronically signed by Mateo Medina MD 02/03/24 09:13:
02/02 0900
I was contacted by patient sister on 02/02 morning for patient being 'off' and dizzy at home
I have asked sister to make sure patient does not get any oxycodone/ambien for next two days. sister is not sure which are those pills, I asked to google picture and remove those .
Also patient have been started on home dose of BP medications with added Metoprolol for BP control. patient has BP monitor and I have asked sister to check BP and make sure its not low
At any point if patient looking sick or have more issues, need to take to patient to nearest ER. Sister voiced understanding.
Original Note:
Today's Communication/Plan
-
d/c planning for home
Assessment / Plan
Assessment / Plan
HPI:
74 y/o male status post cardiac arrest during the wedding ceremony. 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
presented to the emergency department following a cardiac arrest at a wedding during which AED which was applied and advised shock x 2 for V-Fib arrest. Patient denies any symptoms prior to the arrest. He was not having any recent episodes of
chest pain dyspnea on exertion lower extremity edema palpitations lightheadedness dizziness nausea vomiting or diaphoresis. He had no recent or infectious symptoms. Weakness is the patient suddenly collapsed and CPR was immediately started.
Rhythm was V-fib and patient had two defibrillations. He had ROSC at that time. There was an attempt to intubate the patient but he was awake enough and alert enough to not require intubation.
At the time of admission in the emergency department, patient was awake and alert moving all 4 extremities. He was disoriented and mildly confused. He had no focal deficits. He was able to provide his past medical history to some degree. He
apparently was originally from [place] visiting [employer] for a wedding. There is a reported that he has a executor of his estate/POA who reported that the patient has a history of thrombocytosis. All labs are pending at this time. Cardiology
notified. He did complain of substernal chest pain while in the ED. IR notified as well.
ECG NSR, no acute ischemia. QTc 480.
TTE
Low normal left ventricular systolic function. Left ventricular ejection fraction is 50%.
Wall motion analysis is limited by the image quality. Mildly enlarged right ventricular size. Normal right ventricular systolic function.
No significant valve disease.

1. Cardiac arrest
Presumed VT/VF as AED delivered x2 shocks
- CT head with no acute abnormality
- Admission EKG showing NSR with PACs, QTc WNL
- TTE report as above
- CXR with with 'Mild atherosclerotic calcifications of the right carotid bifurcation,' as per radiologist's report, otherwise no pneumothorax or focal airspace disease
- Troponin so far peaked at 3.030
- LHC did not show any problematic CAD. No stenting required
- s/p ICD on 01/30 , post op care per EP cards.
2. Mild TME - resolved
- post cardiac arrest and mild anoxic brain injury related
- CT head did not show any major edema changes, repeat imaging with MRI brain if have persistent issue
- No secondary infection to confound the encephalopathy
3. Rib pain
- From chest compression
- Dedicated rib xr will be required if not improved in next few days, no reported rib fracture on initial PA CXR.
- Patient off heparin drip/renal function stable will provide Toradol doses
- also starting Tylenol 1 g every 8 hour and increasing as needed oxycodone dose
4. Leukocytosis w/o fever -resolved
- continue monitor
5. Normocytic anemia
- monitor with heparin drip.
- no concern of bleeding
6. Pre-diabetic
- A1c of 5.9
- will add SGLT2 inhibitor/metformin
7. Essential HTN - uncontrolled
-Patient will be discharged on home dose of losartan 100 mg/hydrochlorothiazide 12.5 mg daily and Toprol-XL 50 mg daily
8. Paroxysmal atrial fibrillation
-Noted to be in asymptomatic paroxysmal A-fib yesterday on telemetry reviewed by cardiology-
-Eliquis added to regimen
-Already on amiodarone as part of VT regimen
History of Thrombocytosis?
Right carotid atherosclerosis noted on chest x-ray
Essential HTN - HCTZ/losartan on hold.
Hyperlipidemia - continue Atorvastatin
GERD - Protonix IV
TERESA on CPAP - patient uses CPAP at home
Possible CVA in the past.
Obesity.
Hernia repair.
Full Code
DVT Prophylaxis: lovenox
More than 30 minutes spent in discharge including
Final examination of the patient
Summarizing hospital stay
Instructions for continuing care to all relevant caregivers
Preparation of discharge records, prescriptions, and referral forms
Total time spent (in minutes): 39 mins
Anticipated Discharge: Today
Subjective/Interval History
-
Date of Service: February 02, 2024
patient was having run of afib, asymptomatic
continues to have pain issues
Objective Data
-
Labs:
Laboratory Results
02/02/24
05:12
WBC 9.3
Hgb 12.3 L
Hct 34.9 L
Plt Count 144
Sodium 143
Potassium 4.0
Chloride 108 H
Carbon Dioxide 26
BUN 35 H
Creatinine 0.9
Glucose 125 H
Calcium 8.6
Vital Signs:
Vital Signs
Temp Pulse Resp BP Pulse Ox
99 F 86 20 167/110 96
02/02/24 11:52 02/02/24 08:34 02/02/24 11:52 02/02/24 08:30 02/02/24 11:52
I&O
02/01/24 02/02/24 02/03/24
06:59 06:59 06:59
Intake Total 960 / 960 720 / 720
Output Total 525 / 525
Balance 435 / 435 720 / 720
Review of Systems
-
Respiratory: Reports No Symptoms
Cardiac: Reports No Symptoms
Abdomen/GI: Reports No Symptoms
Physical Exam
-
General: No Apparent Distress and Comfortable
HEENT: Negative Oxygen
Respiratory: Clear to Auscultation and Other (diffuse rib tenderness)
Cardiac: S1/S2 and Irregular Rhythm; Negative Murmur, Rub or Tachycardic
GI: Soft, Nontender and Nondistended
Musculoskeletal: No Edema
Neuro: Awake, Alert, Oriented, No Motor Deficits and Nonfocal/Grossly Intact
Psych: Calm
[2024-02-02] MEDS: FLUSH (NSS) 2 FLUSH IV (15:46)
[2024-02-02] MEDS: DILAUDID 0.5 MG IV (15:46)
[2024-02-02 15:56] VITALS: BP 150/95
--- NOTE | 2024-02-02 16:05 | PTCARENOTE ---
Patient discharged home.
--- NOTE | 2024-02-05 14:52 | W.DCSUMMARY ---
Discharge Summary
Discharge Data
Date of Admission: 01/27/24
Date of Discharge: 02/02/24
-
Pending Results: No
Hospital Course
Discharging Physician : Dr Mateo Medina
Disposition : Home
Primary care physician : Unknown
Principal Discharge diagnosis :
Cardiac arrest presumed ventricular tachycardia/ventricular fibrillation
Mild toxic metabolic encephalopathy
Rib pain
Leukocytosis without fever
Paroxysmal atrial fibrillation
Prediabetic
Chronic Discharge diagnosis :
Essential hypertension
History of right carotid artery atherosclerosis
Hyperlipidemia
Gastroesophageal reflux disease
Obstructive sleep apnea on positive airway pressure therapy
Obesity
History of hernia repair
Hospital Course :
Patient is a 74-year-old male with above-mentioned past medical history was brought in after having a witnessed cardiac arrest requiring ceremony. Patient had 2 AED shocks provided and presumed rhythm was V-fib arrest. Postresuscitation patient
was awake enough and intubation was deferred. Patient was brought into ER for further evaluation. CT head done in ER did not show any signs of anoxic brain injury. Admission EKG showing normal sinus rhythm with PACs, QTc interval within normal
limit. An emergent echocardiogram was done which showed preserved ejection fraction without any significant wall motion deficit. Cardiology took patient to left heart catheterization which did not show any problematic coronary artery disease and
no stenting was required. Patient went for an ICD placement following day for secondary prevention of further VT/V-fib issues. Patient had mild TME postcardiac arrest as well which resolved. Patient was complaining some rib pain likely from
resuscitation measures, no fractures on x-ray. Patient required significant pain medication support.
Patient also was found to have paroxysmal atrial fibrillation and patient was asymptomatic, patient was added on Eliquis. Patient was already on amiodarone as part of post VT regimen.
post medical stabilization patient was discharged to home with follow-up with primary cardiology in [place].
Important imaging findings :
None
Procedure findings :
None
Discharge Plan
-
Patient Disposition: Home (Routine Discharge)
Discharge Diagnosis/Procedures: Cardiac arrest, cardiac cath 01/29, ICD implant 01/30
Condition: Fair
Diet: Low Fat and 2 Gram Sodium
Activity: As tolerated
Driving Restrictions: at least 6 months
Bathing Restrictions: OK to Shower
Activity Restrictions/Additional Instructions:
follow up with Dr. Bill your regular retail cosmetics sales beauty advisor
Stand Alone Forms: DC Instructions- Cath/EP Lab, DC Inst - Implanted Device
Referrals:
[facility] [Provider Group] - 02/08/24 3:20 pm (Incision check appointment)
NONE,* [Family Provider] -
Prescriptions:
New
amiodarone 200 mg Tablet
See Rx Instructions .ROUTE .COMPLEX Qty: 90 1RF
Rx Instructions:
Take 2 Tablet twice daily for 2 weeks THEN
Take 2 Tablet once daily for maintenance
metoprolol succinate 50 mg Tablet Extended Release 24 Hr
50 mg PO DAILY Qty: 30 2RF
acetaminophen [Tylenol Extra Strength] 500 mg Tablet
1,000 mg PO Q8 Qty: 90 0RF
oxycodone 10 mg Tablet
10 mg PO Q4HPRN PRN (Reason: mod sev pain) Qty: 14 0RF
Eliquis 5 mg tablet
5 mg PO BID Qty: 60 2RF
Continued
atorvastatin 80 mg Tablet
80 mg PO HS
aspirin 81 mg Tablet,Delayed Release (Dr/Ec)
81 mg PO HS
losartan-hydrochlorothiazide 100-12.5 mg Tablet
1 tab PO HS
dexlansoprazole [Dexilant] 60 mg Capsule,Biphase Delayed Releas
60 mg PO HS
doxazosin 5 mg capsule
1 tab PO HS
Held
zolpidem 10 mg Tablet
10 mg PO HS
Hold Instructions: Resume on 02/06/24.
Discharge Orders:
Discharge Patient (As Directed); Ordered 02/02/24
Ordered By: Mateo Medina
Care Plan Goals
Care Plan Goals:
Problem: Readiness for enhanced knowledge related to diagnosis and treatment plan
Goal: Understand your diagnosis and treatment plan needs, including medications if applicable.
Instructions: Know your diagnosis, underlying causes and treatment plan options, including medications if applicable. Consult with your health care team to learn about your diagnosis and treatment plan, including medications if applicable.
Discharge Date and Time
Discharge Date/Time: 02/02/24 16:06
Print Language: BELIZEAN
== END 2024-02-02 16:06 | disposition home or self-care (01) | DRG 275 ==
LOC: IVU 23:18
PROVIDERS: Emergency Medicine; Hospitalist; Internal Medicine Cardiovascular Disease; Nurse Practitioner Family; Physician Assistant Medical; Student in an Organized Health Care Education/Training Program; ADMITTING PHYSICIAN Internal Medicine; ATTENDING PHYSICIAN Hospitalist; CONSULT PHYSICIAN Internal Medicine; EMERGENCY PHYSICIAN Student in an Organized Health Care Education/Training Program; OTHER PHYSICIAN Internal Medicine Critical Care Medicine
PROC: B2111ZZ Fluoroscopy of Multiple Coronary Arteries using Low Osmolar Contrast (ICD-10-PCS; 2024-01-30)
PROC: 4A023N7 Measurement of Cardiac Sampling and Pressure, Left Heart, Percutaneous Approach (ICD-10-PCS; 2024-01-30)
PROC: B241ZZ3 Ultrasonography of Multiple Coronary Arteries, Intravascular (ICD-10-PCS; 2024-01-30)
PROC: B2151ZZ Fluoroscopy of Left Heart using Low Osmolar Contrast (ICD-10-PCS; 2024-01-30)
PROC: 02HK3KZ Insertion of Defibrillator Lead into Right Ventricle, Percutaneous Approach (ICD-10-PCS; 2024-01-31)
PROC: 0JH608Z Insertion of Defibrillator Generator into Chest Subcutaneous Tissue and Fascia, Open Approach (ICD-10-PCS; 2024-01-31)
PROC: 02H63KZ Insertion of Defibrillator Lead into Right Atrium, Percutaneous Approach (ICD-10-PCS; 2024-01-31)
DX: I49.01 Ventricular fibrillation (principal); G92.8 Other toxic encephalopathy; I46.2 Cardiac arrest due to underlying cardiac condition; I10 Essential (primary) hypertension; E78.5 Hyperlipidemia, unspecified; K21.9 Gastro-esophageal reflux disease without esophagitis; S09.90XA Unspecified injury of head, initial encounter; W07.XXXA Fall from chair, initial encounter; G47.33 Obstructive sleep apnea (adult) (pediatric); I65.21 Occlusion and stenosis of right carotid artery; E66.9 Obesity, unspecified; I25.10 Atherosclerotic heart disease of native coronary artery without angina pectoris; I49.5 Sick sinus syndrome; I47.20 Ventricular tachycardia, unspecified; I48.0 Paroxysmal atrial fibrillation; R73.03 Prediabetes; D64.9 Anemia, unspecified; D69.6 Thrombocytopenia, unspecified; R07.89 Other chest pain; Z68.31 Body mass index [BMI] 31.0-31.9, adult; Z79.82 Long term (current) use of aspirin; Z79.899 Other long term (current) drug therapy
CPT/HCPCS: 93308; 33249; 70450; 71045; 80048; 80053; 80061; 83036; 83735; 83880; 84100; 84484; 85025; 85027; 85347; 85610; 85730; 86803; 92978; 92979; 93005; 93306; 93458; 96365; 96366; 96367; 97116; 97163; 97167; 97530; 97535; 99291; C1721; C1753; C1777; C1887; C1892; C1894; C1898; Q9950; Q9967